=== PATIENT | male | born 1975 | race Caucasian/White ===

== ENCOUNTER 2019-04-04 02:28 | Inpatient (IN) | payer SELFPAY ==
[~2019-04-04] VITALS: Ht 172.7 cm; Wt 83.5 kg
--- NOTE | 2019-04-04 02:30 | NUR ---
TO ER BED 7 BIB EMS C/O WITNESSED TONIC CLONIC SEIZURE. PER EMS, LASTED APPROX 60 SECONDS. NOTED ORAL TRAUMA, (+) URINARY INCONTINENCE. PT ALTERED, RESTLESS. PER EMS PT WAS GIVEN VERSED 5MG IVP[address] PL[address] PT ON CARDIAC MONITORING, CONTINUOUS POX. ER MD AT BEDSIDE TO EVAL PT WITH ORDERS RECEIVED. WILL CARRY OUT ORDERS.
[2019-04-04] MEDS ORDERED: ONDANSETRON HCL/PF 4 MG/2 ML VIAL ONE (02:42)
[2019-04-04] MEDS ORDERED: LORAZEPAM INJ 2 MG/ML VIAL ONE (02:42)
--- NOTE | 2019-04-04 02:45 | NUR ---
I&O CATH DONE, URINE SAMPLE COLLECTED AND SENT TO LAB.
[2019-04-04] MEDS ORDERED: IV NS 0.9% 1,000 ML BAG IV ONE (03:00)
[2019-04-04] MEDS ORDERED: ONDANSETRON HCL/PF 4 MG/2 ML VIAL IVP ONE (03:00)
[2019-04-04] MEDS ORDERED: LORAZEPAM INJ 2 MG/ML VIAL IVP ONE (03:00)
--- NOTE | 2019-04-04 03:02 | NUR ---
PT FRIEND AT BEDSIDE.
[2019-04-04 03:04] LABS: BASOPHILS % (AUTO) 0.2 % (0.0-2.0); EOSINOPHILS % (AUTO) 0.2 % (0.0-6.0); HEMATOCRIT 35 % (39-51); HEMOGLOBIN 11.5 g/dL (13.5-17.5); LYMPHOCYTES # (AUTO) 1.2 /CMM (0.8-4.8); LYMPHOCYTES % (AUTO) 5.5 % (20.0-44.0); MEAN CORPUSCULAR HGB CONC 33 g/dl (31.0-36.0); MEAN CORPUSCULAR VOLUME 90 fL (80-96); MONOCYTES # (AUTO) 0.7 /CMM (0.1-1.30); MONOCYTES % (AUTO) 3.3 % (2.0-12.0); NEUTROPHILS # (AUTO) 20.5 /CMM (1.8-8.9); NEUTROPHILS % (AUTO) 90.8 % (43.0-81.0); PLATELET COUNT (AUTO) 635 /CMM (150-450); RED BLOOD CELL COUNT(AUTO) 3.88 MIL/uL (4.5-6.0); WHITE BLOOD COUNT (AUTO) 22.6 K/uL (4.3-11.0)
[2019-04-04 03:30] LABS: ALANINE AMINOTRANSFERASE 13 U/L (12-78); ALBUMIN 2.4 g/dL (3.4-5.0); ALCOHOL, BLOOD < 3 mg/dL (0-0); ALKALINE PHOSPHATASE 135 U/L (46-116); ASPARTATE AMINOTRANSFERASE 10 U/L (15-37); BILIRUBIN,TOTAL 0.2 mg/dL (0.2-1.0); CARBON DIOXIDE 18 mmol/L (21-32); CHLORIDE 95 mmol/L (98-107); CREATININE 1.5 mg/dL (0.6-1.3); POTASSIUM 4.2 mmol/L (3.5-5.1); SODIUM SERUM 133 mmol/L (136-145); TOTAL PROTEIN, SERUM 9.5 g/dL (6.4-8.2); UREA NITROGEN, BLOOD 13 mg/dL (7-18)
--- NOTE | 2019-04-04 03:32 | NUR ---
PT TRANSPORTED TO RADIOLOGY FOR CT.
[2019-04-04 03:34] LABS: GLUCOSE 482 mg/dL (74-106)
--- NOTE | 2019-04-04 03:48 | NUR ---
PT BACK FROM RADIOLOGY. PENDING CT RESULT.
[2019-04-04 04:00] LABS: BILIRUBIN,URINE NEGATIVE (NEGATIVE); BLOOD, URINE SMALL Ery/uL (NEGATIVE); COLOR,URINE YELLOW (YELLOW); KETONES,URINE NEGATIVE (NEGATIVE); LEUKOCYTE ESTERASE ,URINE NEGATIVE (NEGATIVE); NITRITE, URINE NEGATIVE (NEGATIVE); PH,URINE 5.5 (5.0-8.0); PROTEIN,URINE 30 mg/dl (NEGATIVE); UGLUCOSE >=1000 mg/dL (NEGATIVE); UROBILINOGEN,URINE 0.2 EU/dL (0.2)
[2019-04-04 04:03] LABS: ABG BASE EXCESS -0.9 mmol/L; ABG OXYGEN SATURATION 95.7 % (92.0-98.5); ABG PCO2 38.3 mmHg (35.0-45.0); ABG PH 7.407 (7.350-7.450); ABG PO2 85.6 mmHg (75.0-100.0); AaDO2 97.8 mmHg; COHb 0.7 % (0.5-1.5); MetHb 0.3 % (0.0-1.5); O2Hb 94.7 % (94.0-97.0); SITE, ABG Right Brachial; VENT MODE, BG N/C 3L
[2019-04-04 04:04] LABS: APPEARANCE,URINE CLEAR (CLEAR)
[2019-04-04 04:05] LABS: BACTERIA,URINE None seen /HPF (None Seen); SQUAMOUS EPITHELIAL CELL,UR Few /HPF (None Seen); WBC,URINE 0-2 /HPF (0-3)
--- NOTE | 2019-04-04 04:06 | NUR ---
PT RESTING QUIETLY, NO ACUTE DISTRESS NOTED, RESP EVEN AND UNLABORED. PT FRIENDS REMAINS AT BEDSIDE.
--- NOTE | 2019-04-04 04:57 | NUR ---
ER MD AT BEDSIDE TALKING TO RE-EVAL PT. PT FRIENDS REMAINS AT BEDSIDE.
[2019-04-04] MEDS ORDERED: LEVOFLOXACIN 750 MG /D5W 150ML PIGGYBACK IV ONE (05:00)
[2019-04-04] MEDS ORDERED: PIPERACILLIN /TAZOBACTAM 3.375 G in IV D5W 50 ML IV ONE (05:00)
[2019-04-04] MEDS ORDERED: PIPERACILLIN /TAZOBACTAM 3.375 G VIAL IV ONE (05:19)
[2019-04-04] MEDS ORDERED: LEVOFLOXACIN 750 MG /D5W 150ML 150 ML IV ONE (05:19)
--- NOTE | 2019-04-04 05:39 | NUR ---
ER SPOKE TO DANA PEARCE DNP REGARDING PT ADMISSION.
--- NOTE | 2019-04-04 05:52 | NUR ---
TELE 314-1
[2019-04-04] MEDS ORDERED: DEXTROSE 50%-WATER 50 ML DISP.SYRIN IV PRN (06:00)
[2019-04-04] MEDS ORDERED: LORAZEPAM INJ 2 MG/ML VIAL IV PRN (06:00)
[2019-04-04] MEDS ORDERED: Z GUARD REMEDY 2 OZ OINT TP PRN (06:00)
[2019-04-04] MEDS ORDERED: ONDANSETRON HCL/PF 4 MG/2 ML VIAL IVP PRN (06:00)
--- NOTE | 2019-04-04 06:04 | NUR ---
REPORT CALLED TO SUPERVISOR INVENTORY MERCHANDISINGGRISELDA MARTIN. WILL TRANSPORT PT VIA ACLS PROTOCOL.
--- NOTE | 2019-04-04 06:40 | NUR ---
REFRIGERATED COMPANY DRIVER NOTES RECEIVED PATIENT FROM ER SAFELY TRANSFERRED TO BED, ON 2 L VIA NC, RESPIRATIONS NOTED 22. NO RESPIRATORY DISTRESS PRESENT, UNABLE TO VERBALLY RESPOND TO QUESTIONS, ALTERED, PLACED ON DENTAL ASSISTING INSTRUCTOR ST AT 105, LEFT HAND #18G INTACT AND PATENT, ABX FROM ER LEVAQUIN RUNNING ORDERED, BELONGINGS LIST DONE, URRUTIA COUNTED WITH ANOTHER STAFF AND GIRLFRIEND MADE AWARE WILL PLACE IN VALUABLES IN SALES MANAGER OFFICE, PATIENT WAS CLEANSED AND REPOSITIONED, SAFETY AND SEIZURE PRECAUTIONS IN PLACE, LOW BED AND LOCKED, SIDE RAILS PADDED, BED ALARM IN PLACE, VOID X2, ALL NEEDS ATTENDED AT THIS TIME, WILL CONTINUE TO MONITOR AND ENDORSE TO NEXT SHIFT.
[2019-04-04 07:00] VITALS: BP 146/95
[2019-04-04] MEDS: ACETAMINOPHEN 650 MG/SUPP.RECT RC PRN ×3 (07:10→22:28)
--- NOTE | 2019-04-04 07:10 | NUR ---
NUT ROASTER HELPER NOTES TYLENOL SUPPOSITORY GIVEN NOTED FEVER OF 103.5. WILL ENDORSE TO NEXT SHIFT.
[2019-04-04 07:28] LABS: CALCIUM, SERUM 8.7 mg/dL (8.5-10.1); CARBON DIOXIDE 26 mmol/L (21-32); CHLORIDE 98 mmol/L (98-107); MAGNESIUM 1.9 mg/dL (1.8-2.4); POTASSIUM 3.8 mmol/L (3.5-5.1); SODIUM SERUM 134 mmol/L (136-145); UREA NITROGEN, BLOOD 11 mg/dL (7-18)
[2019-04-04 07:34] LABS: CHOLESTEROL 170 mg/dL (<200); HDL CHOLESTEROL 37 mg/dL (40-60); LDL 97 mg/dL (0-99); THYROID STIMULATING HORMONE 0.437 uIU/mL (0.358-3.74); TRIGLYCERIDES 257 mg/dL (30-150)
--- NOTE | 2019-04-04 07:43 | NUR ---
PUBLIC HEALTH TEACHER NOTES PATIENT RECEIVED RESTING INSIDE ROOM. ALTERED, UNABLE TO VERBALLY RESPOND TO STIMULI. NO ACUTE DISTRESS. ON TELE, FENCE ERECTOR IN PLACE ST 115. SEIZURE PRECAUTIONS IN PLACE, SIDE RAIL PADDING IN PLACE. GIRLFRIEND AT BEDSIDE. WILL CONTINUE TO MONITOR. BED LOCKED AND IN LOW POSITION. BILATERAL UPPER SIDE RAILS UP AND LOCKED. CALL LIGHT WITHIN EASY REACH
[2019-04-04 07:50] LABS: GLUCOSE 401 mg/dL (74-106)
[2019-04-04 08:00] VITALS: BP 140/90
--- NOTE | 2019-04-04 08:05 | NUR ---
PHYTOPATHOLOGY TEACHER NOTES GIRLFRIEND AT BEDSIDE ASKING FOR A COPY OF PROOF OF ADMISSION IN THE HOSPITAL. GIRLFRIEND VERBALIZED THAT PATIENT IS SUPPOSED TO HAVE A COURT HEARING TODAY AND THEY WILL ACKNOWLEDGE PATIENT NOT BEING PRESENT IF PROOF OF ADMISSION IN THE HOSPITAL IS PROVIDED. PLACED CALL TO SW AND LEFT MESSAGE.
[2019-04-04] MEDS ORDERED: PIPERACILLIN /TAZOBACTAM 3.375 G in IV D5W 50 ML IV SCH (09:00)
[2019-04-04] MEDS: IV NS 0.9% 1,000 ML IV PRN (09:21)
[2019-04-04] MEDS: PANTOPRAZOLE 40 MG VIAL IV SCH (09:21)
[2019-04-04] MEDS: LEVETIRACETAM (500MG) 500 MG in IV NS 0.9% 100 ML IV SCH ×2 (09:21→21:53)
[2019-04-04] MEDS: PIPERACILLIN /TAZOBACTAM 3.375 G in IV D5W 100 ML IV SCH ×2 (10:03→17:57)
[2019-04-04] MEDS: INSULIN REGULAR, HUMAN 100 UNIT/ML 3 ML VIAL SQ PRN ×4 (10:04→22:44)
[2019-04-04] MEDS: BLOOD SUGAR DIAGNOSTIC 1 EACH STRIP IN SCH ×4 (10:04→22:43)
--- NOTE | 2019-04-04 10:52 | NUR ---
MS RN NOTES PLACED CALL AND LEFT MESSAGE TO DR HOWE REGARDING NEURO CONSULT. WILL CONTINUE TO MONITOR
--- NOTE | 2019-04-04 10:59 | NUR ---
MS RN NOTES RECEIVED RESPONSE FROM DR HOWE, MADE AWARE OF PATIENT CONDITION. DR HARRINGTON MADE AWARE. WILL CONTINUE TO MONITOR
--- NOTE | 2019-04-04 14:35 | NUR ---
Vp Medical Consult requested by Dr. Neto Akhtar for Cocaine use. Upon Golf Technician consultation, the pt. presents laying on his bed sleeping and not easily rousable. Per Charge Nurse, pt. is still experiencing altered mental status. Pt. is unable to be assessed at this time. SW to follow up. The pt.s girlfriend, Dayanna Unk [phone] is at bedside. Per pt.s girlfriend, Bobby request, provided Elizabeth with patients Proof of Admission. Zakia expressed gratitude.
[2019-04-04 16:00] VITALS: BP 146/75
--- NOTE | 2019-04-04 16:01 | NUR ---
MS RN NOTES RECTAL TEMP TAKEN WITH RESULT OF 104.2 F. PATIENT REMAINS ALTERED. AROUSABLE TO PAIN. TYLENOL SUPPOSITORY ADMINISTERED ORDERED. COOLING MEASURES PROVIDED, BED BATH GIVEN TO PATIENT. DR HOWE PRESENT AT UNIT AND AWARE. VERBALIZED THAT HE WILL SPEAK WITH DR HARRINGTON WHO IS ALSO PRESENT AT UNIT. WILL CONTINUE TO MONITOR.
--- NOTE | 2019-04-04 16:10 | NUR ---
MS RN NOTES WITH NEW ORDER FROM DR HARRINGTON FOR STAT KUMBAR PUNCTURE. UNABLE TO OBTAIN INFORMED CONSENT FROM PATIENT DUE TO MENTAL STATUS, NO OTHER AVAILABLE FAMILY MEMBER AVAILABLE PER CHART AND PER GIRLFRIEND AT BEDSIDE. CONSENT SIGNED BY 2 MDs, DR HARRINGTON AND DR HOWE. RADIOLOGY AWARE.
--- NOTE | 2019-04-04 16:12 | NUR ---
MS RN NOTES RETAKEN TEMP WITH RESULT OF 101.3 F. CONTINUE WITH PROVIDING COOLING MEASURES. WILL CONTINUE TO MONITOR
--- NOTE | 2019-04-04 16:18 | NUR ---
MS RN NOTES PATIENT WHEELED BY Favim FOR LUMBAR PUNCTURE. LEFT BY HOSPITAL BED
[2019-04-04 18:02] LABS: CSF GLUCOSE 59 mg/dL (40-70)
--- NOTE | 2019-04-04 19:05 | NUR ---
MS RN NOTES RECEIVED PT IN BED WITH FAMILY AT BEDSIDE. PT ALTERED AND UNABLE TO VERBALLY RESPOND TO STIMULI. NO ACUTE DISTRESS NOTED AT THIS TIME. PT ON SEIZURE PRECAUTIONS, WITH SIDE RAIL PADDING IN PLACE. NO S/S OF PAIN AT THIS TIME. PT NOTED WITH FABIO KELLER #18G PATENT AND INTACT INFUSING NS @75CC/HR. BED IN LOWEST LOCKED POSITION. CALL LIGHT WITHIN REACH. WILL CONTINUE TO MONITOR.
[2019-04-04 19:08] LABS: CSF PROTEIN 424.4 mg/dL (15-45)
[2019-04-04 20:00] VITALS: BP 134/86
--- NOTE | 2019-04-04 20:15 | NUR ---
MS RN NOTES PT NOTED WITH ELEVATED TEMP, COOLING MEASURES STARTED INCLUDING ICE BACK. MD MADE AWARE WELL CHARGE NURSE. WILL CONTINUE TO MONITOR.
[2019-04-04] MEDS: CEFTRIAXONE 2 G in IV D5W 100 ML IV SCH (20:29)
[2019-04-04] MEDS ORDERED: VANCOMYCIN HCL 1.25 GM in IV D5W 260 ML IV ONE (21:30)
[2019-04-04] MEDS ORDERED: VANCOMYCIN 1 GM in IV NS 0.9% 250 ML IV ONE (22:00)
[2019-04-04] MEDS ORDERED: VANCOMYCIN 1.5 GM in IV NS 0.9% 500 ML IV ONE (22:00)
[2019-04-04] MEDS ORDERED: DEXAMETHASONE SOD PHOSPHATE 10 MG/ML VIAL ONE (22:20)
[2019-04-04] MEDS ORDERED: VANCOMYCIN 1 GM VIAL ONE (22:21)
[2019-04-04] MEDS ORDERED: VANCOMYCIN 500 MG VIAL ONE (22:22)
--- NOTE | 2019-04-04 22:28 | NUR ---
MS RN NOTES PT NOTED WITH ELEVATED TEMP, TYLENOL SUP GIVEN, AND COOLING MEASURES. WILL CONTINUE TO MONITOR.
[2019-04-04] MEDS ORDERED: VANCOMYCIN 500 MG in IV NS 0.9% 100 ML IV ONE (23:00)
[2019-04-05] VITALS (57 sets, daily range): BP systolic 76–153; BP diastolic 37–92
[2019-04-05] MEDS: DEXAMETHASONE SOD PHOSPHATE 10 MG/ML VIAL IV SCH ×5 (00:09→23:20)
[2019-04-05] MEDS: METRONIDAZOLE 500MG/ NS 100ML 500 MG in PREMIX 1 EA IV SCH ×2 (01:10→05:05)
[2019-04-05] MEDS ORDERED: LEVOFLOXACIN 750 MG /D5W 150ML 750 MG in PREMIX 1 EA IV SCH (06:00)
[2019-04-05 06:23] LABS: BASOPHILS % (AUTO) 0.1 % (0.0-2.0); HEMATOCRIT 35 % (39-51); HEMOGLOBIN 11.6 g/dL (13.5-17.5); LYMPHOCYTES # (AUTO) 0.6 /CMM (0.8-4.8); LYMPHOCYTES % (AUTO) 2.4 % (20.0-44.0); MEAN CORPUSCULAR HGB CONC 33 g/dl (31.0-36.0); MEAN CORPUSCULAR VOLUME 89 fL (80-96); MONOCYTES # (AUTO) 0.8 /CMM (0.1-1.30); MONOCYTES % (AUTO) 3.3 % (2.0-12.0); NEUTROPHILS # (AUTO) 23.1 /CMM (1.8-8.9); NEUTROPHILS % (AUTO) 94.2 % (43.0-81.0); PLATELET COUNT (AUTO) 450 /CMM (150-450); RED BLOOD CELL COUNT(AUTO) 3.95 MIL/uL (4.5-6.0); WHITE BLOOD COUNT (AUTO) 24.5 K/uL (4.3-11.0)
[2019-04-05] MEDS: INSULIN REGULAR, HUMAN 100 UNIT/ML 3 ML VIAL SQ PRN ×3 (06:29→21:51)
[2019-04-05] MEDS: BLOOD SUGAR DIAGNOSTIC 1 EACH STRIP IN SCH ×4 (06:39→21:49)
[2019-04-05] MEDS: ACETAMINOPHEN 650 MG/SUPP.RECT RC PRN (06:44)
[2019-04-05 06:55] LABS: THYROID STIMULATING HORMONE 0.644 uIU/mL (0.358-3.74)
[2019-04-05] MEDS: CEFTRIAXONE 2 G in IV D5W 100 ML IV SCH ×2 (07:22→17:53)
--- NOTE | 2019-04-05 07:45 | NUR ---
MS RN NOTES PT IN BED ASLEEP. PT ALTERED AND UNABLE TO VERBALLY RESPOND TO STIMULI. NO ACUTE DISTRESS NOTED AT THIS TIME. PT ON SEIZURE PRECAUTIONS, WITH SIDE RAIL PADDING IN PLACE. PT NOTED WITH ELEVATED TEMP THROUGHOUT SHIFT. PT GIVEN COOLING MEASURES WELL TYLENOL. CHARGE NURSE MADE AWARE WELL MD. PT KEPT CLEAN, DRY, AND COMFORTABLE. PT TURNED Q2 HOURS THROUGHOUT SHIFT. NO S/S OF PAIN AT THIS TIME. PT NOTED WITH FABIO KELLER #18G PATENT AND INTACT INFUSING NS @75CC/HR. BED IN LOWEST LOCKED POSITION. CALL LIGHT WITHIN REACH. WILL ENDORSE TO ONCOMING NURSE FOR CHARLEEN.
[2019-04-05] MEDS: PANTOPRAZOLE 40 MG VIAL IV SCH (07:49)
[2019-04-05 07:59] LABS: CALCIUM, SERUM 8.8 mg/dL (8.5-10.1); CREATININE 0.9 mg/dL (0.6-1.3); MAGNESIUM 2.3 mg/dL (1.8-2.4); PHOSPHORUS 2.3 mg/dL (2.5-4.9); POTASSIUM 3.9 mmol/L (3.5-5.1)
[2019-04-05] MEDS ORDERED: ACYCLOVIR IV 1 GM in IV D5W 250 ML IV SCH (08:00)
--- NOTE | 2019-04-05 08:00 | NUR ---
MS RN NOTES RECEIVED PATIENT IN THE BED TELE ST-116, V/S TAKEN PATIENT T-100.3, GIVEN COOLING MEASURES (ICE PACK AND COOL WATER BATH), PATIENT HAS LOOSE BOWEL MOVEMENT. VITAL SIGNS - BP: 119/76 HR: 116 RR: 26 TEMP:100.3 SPO2: 99 ON ROOM 2L NC. PATIENT BREATHING THROUGH MOUTH. BREATHING UNLABORED. DAILY ORAL HYGIENE IMPLEMENTED. FOUR SIDE RAILS UP AND PADDED FOR SEIZURE PRECAUTION. BED SET IN TREJO'S POSITION TO DECREASE RISK OF ASPIRATION. SKIN DRY AND INTACT. PATIENT ABLE TO RESPOND WHEN TOUCHED, MAKES GRUNTING NOISE WHEN MOVING THE PATIENT AND OPENS EYES BUT NOT ABLE TO FOLLOW COMMANDS. ROCEPHIN AND LEVAQUIN ANTIBIOTICS RUNNING ON IV ON LEFT FOREARM. PATIENT WEARING DIAPER, UNABLE TO COLLECT URINE AT THIS TIME. HOSPITALIST GITA MADE ORDERS FOR PATIENT TO BE TRANSFERRED TO THE ICU. CURRENTLY WAITING FOR A BED AVAILABILITY.
[2019-04-05] MEDS ORDERED: VANCOMYCIN 1 GM in IV D5W 250 ML IV SCH (08:30)
[2019-04-05] MEDS: VANCOMYCIN 1.25 GM in IV D5W 250 ML IV SCH ×2 (09:11→16:27)
[2019-04-05] MEDS: LEVETIRACETAM (500MG) 500 MG in IV NS 0.9% 100 ML IV SCH ×2 (09:11→20:50)
--- NOTE | 2019-04-05 09:30 | NUR ---
SALES AND MERCHANDISING ASSOCIATE NOTE RECEIVED REPORT FROM NURSE PATEL FROM [facility].
--- NOTE | 2019-04-05 09:45 | NUR ---
MS RN NOTES PATIENT TRANSFERRED TO ICU ROOM 253, ASSIST WITH THREE NURSES. APPLIED MASK ON PATIENT FOR DROPLET SAFETY PRECAUTION. PATIENT ON 2L NC. TELEMONITOR ON, HR STABLE. CURRENT TEMPERATURE IS 100.9. ICE PACKS PLACED ON PATIENT'S AXILLARY AND GROIN AREA. NO ACUTE RESPIRATORY DISTRESS NOTED. REPORT GIVEN TO INSTALLMENT AGENTTATUM. INSTALLMENT AGENT VERBALIZED UNDERSTANDING OF PLAN OF CARE. WILL FOLLOW UP WITH ICU.
[2019-04-05] MEDS ORDERED: FEE PK DOSING 1 MIN EA MC ONE (10:03)
--- NOTE | 2019-04-05 10:15 | NUR ---
CERAMIC MAKER DEMONSTRATOR NOTE RECEIVED PATIENT FROM [facility] VIA BED@[phone].ON ISOLATION PRECAUTIONS FOR MENINGITIS.PATIENT IN BED.RESPONDING ONLY TO PAINFUL STIMULI.L SIDE NOT MOVING .REFLEXES PRESENT ON L SIDE.CLINICAL SUPERVISOR ANDER MADE AWARE.CT HEAD DONE ON 04/04.NO ACUTE INTRACRANIAL ABNORMALITY.IV ON L HAND # 18 .INTACT AND PATENT.NO BELONGINGS EXCEPT BRACELET.ON O2 2L VIA NASAL CANULA.SATURATING 92-96%.SHALLOW BREATHING.SEEN BY .GOT ORDER FOR INTUBATION.CALL MADE TO ER DOCTOR.WILL CONTINUE TO MONITOR.
[2019-04-05] MEDS ORDERED: PROPOFOL 100 ML ONE (10:21)
[2019-04-05] MEDS ORDERED: PROPOFOL 200 MG/20 ML VIAL IV ONE (10:25)
[2019-04-05] MEDS ORDERED: MIDAZOLAM HCL 2 MG/2ML VIAL ONE (10:31)
--- NOTE | 2019-04-05 10:35 | NUR ---
RT PATIENT REC'D TRANSFER FROM [facility]. PATIENT WAS NON RESPONSIVE TO VERBAL COMMANDS. PER DR STOKES PATIENT REQUIRED ORAL INTUBATION TO PROTECT AIRWAY. ER DOCTOR SANDRA ARRIVED AND INTUBATED PATIENT WITH A 7.5 ETT SECURED AT 26CM AT THE LIP. POSITIVE CO2 DETECTOR COLOR CHANGE NOTED, BILAT BREATH SOUNDS WERE HEARD. NOTED CHEST RISE ON INFLATION. XRAY CONFIRMED PROPER ETT PLACEMENT. PATIENT PLACED ON VENT WITH ORDERED SETTINGS PRASANNA WELL. EVENT ALARMS CHECKED + AUDIBLE. CUFF PRESSURE CHECKED COMMERCIAL CREDIT HEAD. AMBU BAG AT HOB. CONT CURRENT PLAN OF CARE Addendum: 04/05/19 at 1412 by THOMAS GUEVARA RT Amended: Links added.
[2019-04-05] MEDS ORDERED: MIDAZOLAM HCL 2 MG/2ML VIAL IV ONE (10:45)
--- NOTE | 2019-04-05 10:45 | NUR ---
BOAT RENTAL CLERK NOTE PATIENT GOT INTUBATED BY FROM ER.7.09/26@[facility] LEVEL @1035.STARTED ON PROPOFOL DRIP.WILL CONTINUE TO MONITOR.
[2019-04-05] MEDS ORDERED: Sodium Phosphate 15 MMOL in IV D5W 250 ML IV ONE (11:00)
[2019-04-05] MEDS ORDERED: LORAZEPAM INJ 2 MG/ML VIAL IV PRN (11:30)
[2019-04-05] MEDS ORDERED: MORPHINE SULFATE INJ 4 MG/ML DISP.SYRIN IV PRN (11:30)
[2019-04-05] MEDS ORDERED: NOREPINEPHRINE 16 MG in IV D5W 500 ML IV PRN (11:30)
[2019-04-05] MEDS ORDERED: PROPOFOL 100 ML IV PRN (11:30)
--- NOTE | 2019-04-05 11:30 | NUR ---
CONCRETE BUILDING ASSEMBLER NOTE CAR INSPECTION AND REPAIR MANAGER DMTRY MADE AWARE THAT PATIENT BP TRENDING DOWN.GOT ORDER FOR LEVOPHED.OK TO INSERT PICCLINE.WILL CONTINUE TO MONITOR.
[2019-04-05] MEDS ORDERED: NEUTRA PHOS 1 POWD.PACKET PO ONE (12:00)
[2019-04-05] MEDS ORDERED: AMPICILLIN SODIUM 2 GM in IV NS 0.9% 100 ML IV SCH (12:00)
[2019-04-05 12:10] LABS: ABG BASE EXCESS 1.9 mmol/L; ABG OXYGEN SATURATION 98.8 % (92.0-98.5); ABG PCO2 30.6 mmHg (35.0-45.0); ABG PH 7.518 (7.350-7.450); ABG PO2 208.1 mmHg (75.0-100.0); COHb 0.5 % (0.5-1.5); MetHb 0.5 % (0.0-1.5); O2Hb 97.8 % (94.0-97.0); SITE, ABG Left Brachial; VENT MODE, BG AC 14 500 60% +5
[2019-04-05] MEDS: PROPOFOL 100 ML IV PRN ×4 (12:19→20:48)
[2019-04-05] MEDS: PIPERACILLIN /TAZOBACTAM 4.5 G in IV D5W 50 ML IV SCH ×3 (13:07→23:20)
--- NOTE | 2019-04-05 14:30 | NUR ---
GRAIN SPOUTER NOTE PATIENT DONT HAVE LEGAL RESPONSIBLE GREEN PARTY FOR SIGN CONSENT.ALICIA LORENZO MADE AWARE.FIANCEE BEDSIDE.SHE SAID SHE WILL CALL BROTHER.BUT BROTHER DONT HAVE GOOD RELATION WITH PATIENT. AND ALICIA LORENZO SIGN FOR CONSENT.
--- NOTE | 2019-04-05 15:00 | NUR ---
FABRIC CUTTER NOTE PATIENT LAY CHAN ASKING FOR MONEY PATIENT HAD WHILE HE GOT ADMITTED.REPAIRER WOOD FURNITURE MARIBELL MADE AWARE.UNABLE TO RELEASE MONEY WITH OUT PATIENT'S PERMISSION.SHE MADE AWARE.DUSTIN GOT UPSET.EXPLAINED HOSPITAL POLICY .
[2019-04-05] MEDS: ACETAMINOPHEN 650 MG/20.3 ML UDC NG PRN (15:43)
[2019-04-05] MEDS: IV NS 0.9% 1,000 ML IV PRN (18:15)
--- NOTE | 2019-04-05 19:38 | NUR ---
WIRE CUTTER CLOSING NOTE PATIENT IN BED INTUBATED.ETT 7.5,26@LIP LEVEL.TOLERATING SETTINGS WELL.ON LEVO ,DIPRIVAN .JAYME PICC LINE.ALL IV LINES ARE INTACT AND PATENT.SAFETY AND ASPIRATION PRECAUTIONS IN PLACE.SEEN BY PATIENT SISTER.ADDED ON CONTACT LIST RESPONSIBLE GREEN PARTY SISTER AND BROTHER.DUSTIN MADE AWARE TO GO TO [facility] TO SEE NURSE TO VERIFY PATIENT BELONGINGS.SPOKE TO NURSE VIOLETTA MADE AWARE PATIENT BELONGINGS MISSING.SHE IS WAITING FAMILY TO VERIFY PATIENT BELONGINGS.ENDORSED TO PM NURSE FOR CHARLEEN.
--- NOTE | 2019-04-05 19:45 | NUR ---
RN NOTES PATIENT ORALLY INTUBATED ON ETT 7.5 AND 26CM @ LIP LINE. WITH VENT SETTING AC 14 TV 500 FIO2 40% PEEP5 TOLERATED WELL SATURATION 100%. PATIENT IS SEDATED WITH DIPRIVAN . WITH NGT CLAMPED ONLY FOR MEDS, IV ON JAYME PICC LINE WITH LEVO @ 10 AND PROPOFOL @ 60 MCG/KG/MIN TITRATED PROTOCOL ORDER, AND IVF NS @ 75 ML/HR. IV LINE ON LH, LFA ARE ALL INTACT AND PATENT. BLISS CATH DRAINED WITH SEDIMENTED YELLOW COLOR URINE. COOLING BLANKET KEPT IN PLACED RECEIVED TEMP 101.5 DEGREE FHARENHEIGHT. KEPT PT CLEAN AND DRY. TURNED AND REPOSITIONED Q2H AND PRN FOR COMFORT.
--- NOTE | 2019-04-05 22:00 | NUR ---
RN NOTES INFORMED ALICIA NEUROUROLOGIST THAT PATIENT BS 496 MG/DL AND 20 UNITS OF REGULAR INSULIN GIVEN ORDERED, PER ELEMENTARY SCIENCE TEACHER TO RECHECKED BS IN 1 HOUR. NOTED
--- NOTE | 2019-04-05 23:07 | NUR ---
RN NOTES INFORMED ALICIA CRIME SCENE EVIDENCE TECHNICIAN THAT PATIENT BS RECHECKED IS 430 MG/DL PER CRIME SCENE EVIDENCE TECHNICIAN TO GIVE ANOTHER 20 UNITS OF REGULAR INSULIN AND RECHECKED IN 1HR. NOTED AND CARRIED OUT ORDER.
[2019-04-05] MEDS ORDERED: INSULIN REGULAR, HUMAN 100 UNIT/ML 3 ML VIAL SQ ONE (23:30)
[2019-04-06] VITALS (92 sets, daily range): BP systolic 100–134; BP diastolic 58–92
[2019-04-06] MEDS: PROPOFOL 100 ML IV PRN ×6 (01:16→23:00)
[2019-04-06] MEDS ORDERED: NOREPINEPHRINE 16 MG in IV D5W 500 ML IV PRN (01:30)
[2019-04-06] MEDS ORDERED: INSULIN REGULAR, HUMAN 100 UNIT/ML 3 ML VIAL SQ ONE (01:30)
[2019-04-06] MEDS: VANCOMYCIN 1.25 GM in IV D5W 250 ML IV SCH ×2 (01:36→08:02)
--- NOTE | 2019-04-06 01:37 | NUR ---
RN NOTES BS RECHECKED FOR THE 3RD TIME AND BS IS 430 MG/DL STILL. INFORMED ALICIA INJECTION PRESS OPERATOR, WITH NEW ORDER TO GIVE ANOTHER 20 UNITS OF INSULIN SQ. AND TO RECHECKED AFTER AN HOUR.
[2019-04-06] MEDS: ACETAMINOPHEN 650 MG/20.3 ML UDC NG PRN (01:46)
[2019-04-06] MEDS ORDERED: NOREPINEPHRINE 4 MG/4 ML AMPUL IV ONE (03:37)
[2019-04-06] MEDS: NOREPINEPHRINE 16 MG in IV NS 0.9% 500 ML IV PRN (04:00)
--- NOTE | 2019-04-06 04:00 | NUR ---
RN NOTES BED BATH DONE TOLERATED WELL, WITH LARGE BMX1 BLACK MUCOID COLOR OUTPUT SENT SAMPLE TO LAB FOR OB STOOL. ORDERED BY DR. NEAL. KEPT PT CLEAN AND DRY.
[2019-04-06 04:26] LABS: BASOPHILS # (AUTO) 0.1 /CMM (0.0-0.2); BASOPHILS % (AUTO) 0.3 % (0.0-2.0); HEMATOCRIT 28 % (39-51); HEMOGLOBIN 9.6 g/dL (13.5-17.5); LYMPHOCYTES # (AUTO) 0.6 /CMM (0.8-4.8); LYMPHOCYTES % (AUTO) 2.6 % (20.0-44.0); MEAN CORPUSCULAR HGB CONC 34 g/dl (31.0-36.0); MEAN CORPUSCULAR VOLUME 89 fL (80-96); MONOCYTES # (AUTO) 0.6 /CMM (0.1-1.30); MONOCYTES % (AUTO) 2.8 % (2.0-12.0); NEUTROPHILS # (AUTO) 21.3 /CMM (1.8-8.9); NEUTROPHILS % (AUTO) 94.3 % (43.0-81.0); PLATELET COUNT (AUTO) 468 /CMM (150-450); RED BLOOD CELL COUNT(AUTO) 3.19 MIL/uL (4.5-6.0); WHITE BLOOD COUNT (AUTO) 22.6 K/uL (4.3-11.0)
[2019-04-06 04:39] LABS: CALCIUM, SERUM 7.9 mg/dL (8.5-10.1); CREATININE 1.6 mg/dL (0.6-1.3); PHOSPHORUS 3.6 mg/dL (2.5-4.9); POTASSIUM 3.3 mmol/L (3.5-5.1)
[2019-04-06 05:15] LABS: OCCULT BLOOD STOOL NEGATIVE (NEGATIVE)
[2019-04-06] MEDS: PIPERACILLIN /TAZOBACTAM 4.5 G in IV D5W 50 ML IV SCH ×3 (05:51→17:35)
[2019-04-06] MEDS: DEXAMETHASONE SOD PHOSPHATE 10 MG/ML VIAL IV SCH ×3 (05:51→17:52)
[2019-04-06] MEDS: CEFTRIAXONE 2 G in IV D5W 100 ML IV SCH ×2 (05:51→17:54)
--- NOTE | 2019-04-06 07:13 | NUR ---
RN NOTES NO SIGNIFICANT CHARLEEN THROUGHOUT THE SHIFT. ALL DUE MEDICINE ADMINISTERED ORDERED. ETT AND VENT SETTING TOLERATED WELL. AFEBRILE AT THIS TIME LAST TEMPERATURE WAS 98.8 DEGREE FHARENHEIGHT, COOLING BLANKET OFF. LEVOPHED @ 6 MCG/MIN AND DIPRIVAN @ 45 MCG/KG/MIN, PATIENT REMAINED SEDATED. VSS WITH PRESSORS. ISOLATION PRECAUTION FOR DROPLET KEPT MET. BS CLOSELY MONITOR. LAST BLD. SUGAR WAS 439 MG/DL PER ALICIA MCNEILL AT THIS TIME SINCE PATIENT HAD DECADRON. KEPT PT CLEAN AND DRY. ENDORSED CONTINUITY OF CARE TO AM NURSE.
[2019-04-06] MEDS: INSULIN REGULAR, HUMAN 100 UNIT/ML 3 ML VIAL SQ PRN ×4 (07:44→22:03)
[2019-04-06] MEDS: BLOOD SUGAR DIAGNOSTIC 1 EACH STRIP IN SCH ×4 (07:48→21:58)
[2019-04-06 08:07] LABS: HIV SCRN 4G wRFX Non Reactive (Non Reactive)
[2019-04-06] MEDS: PANTOPRAZOLE 40 MG VIAL IV SCH (08:43)
[2019-04-06] MEDS: LEVETIRACETAM (500MG) 500 MG in IV NS 0.9% 100 ML IV SCH (09:11)
[2019-04-06] MEDS ORDERED: POTASSIUM CL. PREMIX PERIPHER. 50 ML IV SCH (10:30)
[2019-04-06] MEDS ORDERED: MORPHINE SULFATE INJ 4 MG/ML DISP.SYRIN IV PRN (10:39)
[2019-04-06] MEDS: IV NS 0.9% 1,000 ML IV PRN (10:55)
--- NOTE | 2019-04-06 11:23 | NUR ---
RN NOTES 0730-RECEIVED PATIENT FROM RN. APTIENT ORALLY INTUBATED, NO SIGN OF PAIN. ON PROPOFOL DRIP, LEVOPHED DRIP. MONITOR STATUS 1000-SEEN BBY DR DIVYA RAYMOND MD WITH ORDER FOR VENT CHANGES. SEDATION VACATION STARTED, MONITOR STATUS 1115-SEEN BY DR MUNOZ, PATIENT OPENS EYES, FOLLOWS SIMPLE COMMANDS, NOTED LEFT SIDE WEAKNESS, DR MUNOZ AWARE.PATIENT HAD SEIZURE ACTIVITY ABOUT 5-[address] MUNOZ NOTIFIED. PATIENT RETARTED ON PROPOFOL PER DR MUNOZ'S INSTRUCTIONS
[2019-04-06] MEDS: ACETAMINOPHEN 650 MG/SUPP.RECT RC PRN (12:32)
[2019-04-06] MEDS ORDERED: LEVETIRACETAM (500MG) 500 MG in IV NS 0.9% 100 ML IV STA (14:50)
--- NOTE | 2019-04-06 14:53 | NUR ---
RN NOTES PATIENT SEEN BY DR HOWE, REPORT GIVEN ABOUT PATIENT MOTOR STATUS ON THE LEFT SIDE, HE SAID HE IS AWARE OF IT WHEN PATIENT HAD HIS CT DONE THE DAY BEFORE.
[2019-04-06] MEDS ORDERED: LEVETIRACETAM SOL (5 ML) 100 MG/ML UDC NG ONE (15:02)
[2019-04-06] MEDS: VANCOMYCIN 1 GM in IV D5W 250 ML IV SCH (16:47)
--- NOTE | 2019-04-06 19:00 | NUR ---
RECEIVED PATIENT ORALLY INTUBATED TO THE VENT ON AC MODE,SEDATED ON PROPOFOL DRIP @ 45 MCG/KG.MIN, + COUGH,+ GAG. ON LEVOPHED DRIP FOR BP SUPPORT. ON DROPLET ISOLATION R/O MENINGITIS.WILL CLOSELY MONITOR FOR ANY SEIZURE EPISODE,SEIZURE AND ASPIRATION PRECAUTION IMPLEMENTED. COMFORT CARE DONE.
--- NOTE | 2019-04-06 19:16 | NUR ---
RN NOTES 1699-CT HEAD DONE, DR HOWE NOTIFIED OF THE RESULTS.PATIENT REMAINS ON PROPOFOL DRIP, NOTED TO GRIMACE TO PAIN AT TIMES. LEVOPHED ONGOING, LOSER RATE. AFEBRILE. 1899-PATIENT VISITED BY"[id number]" FROM [place], ENCOURAGED VISITOR TO GET IN TOUCH WITH PATIENT BROTHER, MITCHELL. SPOKE TO MITCHELL AND INFORMED THAT "NATANAEL" CLAIMING TO BE BROTHER CALLED GLORIA COLLADO, HE SAID "MIGHT BE A FRIEND SINCE PATIENT IS FRIENDLY, ASKED MITCHELL IF INFO CAN BE GIVEN TO VISITORS OR CALLERS , INFORMED MITCHELL TO ALSO INFORM THEIR SISTER. REPORT GIVEN TO RN FOR FURTHER CARE
--- NOTE | 2019-04-06 19:43 | NUR ---
RECEIVED PT ORALLY INTUBATED WITH 7.5 ETT SECURED VIA ANCHOR FAST AT 26CM AT THE LIP. NO RESP DISTRESS. PT TOLERATING VENT SETTINGS. PT IS SEDATED. VENT ALARMS SET AND AUDIBLE. AMBU BAG AT BEDSIDE. WILL CONTINUE TO MONITOR T/O SHIFT
[2019-04-06] MEDS ORDERED: LEVETIRACETAM (500MG) 1,000 MG in IV NS 0.9% 100 ML IV SCH (21:00)
[2019-04-06] MEDS: LEVETIRACETAM SOL (5 ML) 100 MG/ML UDC NG SCH (21:47)
--- NOTE | 2019-04-06 22:00 | NUR ---
STATUS UNCHANGED,SEDATED.AWAKENS EASILY WHEN PROPOFOL WAS PAUSE (WHEN VOLUME WAS EMPTY,)NOTED MOVEMENT OF RIGHT ARM AND LEGS.
[2019-04-07] VITALS (60 sets, daily range): BP systolic 90–130; BP diastolic 52–96
--- NOTE | 2019-04-07 | NUR ---
REMAINS STABLE,WEAN DOWN LEVOPHED DRIP TOLERATED. REMAINS AFEBRILE.STILL ON PROPOFOL DRIP + COUGH AND GAG.
[2019-04-07] MEDS: PIPERACILLIN /TAZOBACTAM 4.5 G in IV D5W 50 ML IV SCH ×4 (00:01→17:12)
[2019-04-07] MEDS: VANCOMYCIN 1 GM in IV D5W 250 ML IV SCH ×3 (01:00→16:54)
[2019-04-07] MEDS: IV NS 0.9% 1,000 ML IV PRN ×2 (02:45→16:54)
[2019-04-07] MEDS: PROPOFOL 100 ML IV PRN ×4 (03:47→22:45)
--- NOTE | 2019-04-07 04:00 | NUR ---
STATUS UNCHANGED, STILL ON PROPOFOL DRIP,STILL NO MOVEMENT NOTED ON LEFT SIDE. ON LOW DOSE LEVOPHED, BP STABLE. 0500 AM BATH DONE,
[2019-04-07] MEDS: NOREPINEPHRINE 16 MG in IV NS 0.9% 500 ML IV PRN (04:57)
[2019-04-07 05:00] LABS: BASOPHILS # (AUTO) 0.3 /CMM (0.0-0.2); BASOPHILS % (AUTO) 1.2 % (0.0-2.0); HEMATOCRIT 29 % (39-51); HEMOGLOBIN 9.7 g/dL (13.5-17.5); LYMPHOCYTES % (AUTO) 4.3 % (20.0-44.0); MEAN CORPUSCULAR HGB CONC 34 g/dl (31.0-36.0); MEAN CORPUSCULAR VOLUME 89 fL (80-96); MONOCYTES # (AUTO) 1.1 /CMM (0.1-1.30); NEUTROPHILS # (AUTO) 19.7 /CMM (1.8-8.9); NEUTROPHILS % (AUTO) 89.5 % (43.0-81.0); PLATELET COUNT (AUTO) 451 /CMM (150-450); RED BLOOD CELL COUNT(AUTO) 3.24 MIL/uL (4.5-6.0); WHITE BLOOD COUNT (AUTO) 22.1 K/uL (4.3-11.0)
[2019-04-07 05:07] LABS: BILIRUBIN,TOTAL 0.1 mg/dL (0.2-1.0); CREATININE 1.1 mg/dL (0.6-1.3); MAGNESIUM 2.3 mg/dL (1.8-2.4); PHOSPHORUS 3.3 mg/dL (2.5-4.9); POTASSIUM 3.6 mmol/L (3.5-5.1); TOTAL PROTEIN, SERUM 7.3 g/dL (6.4-8.2)
[2019-04-07 05:35] LABS: ALBUMIN 1.4 g/dL (3.4-5.0)
[2019-04-07] MEDS: CEFTRIAXONE 2 G in IV D5W 100 ML IV SCH ×2 (06:01→18:07)
--- NOTE | 2019-04-07 07:00 | NUR ---
REPORT GIVEN TO TATUM VILLALOBOS.
--- NOTE | 2019-04-07 07:35 | NUR ---
KINESIOLOGIST OPENING NOTES RECEIVED REPORT FROM PM NURSE.PATIENT ORALLY INTUBATED ON ETT 7.5 AND 26CM @ LIP LINE. ON VENT TOLERATING SETTINGS ORDERED.SATURATING 100%. PATIENT IS SEDATED WITH DIPRIVAN . WITH NGT CLAMPED . IV ON JAYME PICC LINE WITH PROPOFOL @ 45 MCG/KG/MIN AND IVF NS @ 75 ML/HR. IV LINE ON LH, LFA ARE ALL INTACT AND PATENT. BLISS CATH DRAINED WITH DARK YELLOW COLOR URINE. BED IS LOW AND IN LOCKED POSITION.BILATERAL SOFT RESTRAINTS ON .SAFETY,VISUAL CHECK DONE.ON CONTACT ISOLATION FOR DROPLET PRECAUTIONS.SRX3.BED ALARM ON .HOB ELEVATED.WILL CONTINUE TO MONITOR.
[2019-04-07 08:01] LABS: ABG BASE EXCESS 0.4 mmol/L; ABG OXYGEN SATURATION 97.7 % (92.0-98.5); ABG PCO2 32.6 mmHg (35.0-45.0); ABG PH 7.477 (7.350-7.450); ABG PO2 120.6 mmHg (75.0-100.0); AaDO2 127.1 mmHg; COHb 0.3 % (0.5-1.5); MetHb 0.4 % (0.0-1.5); SITE, ABG Right Radial; VENT MODE, BG AC 14 500 40% +0
[2019-04-07] MEDS: BLOOD SUGAR DIAGNOSTIC 1 EACH STRIP IN SCH ×3 (08:06→17:10)
[2019-04-07] MEDS: LEVETIRACETAM SOL (5 ML) 100 MG/ML UDC NG SCH ×2 (08:06→21:43)
[2019-04-07] MEDS: PANTOPRAZOLE 40 MG VIAL IV SCH (08:06)
[2019-04-07] MEDS: INSULIN REGULAR, HUMAN 100 UNIT/ML 3 ML VIAL SQ PRN ×3 (08:16→17:16)
--- NOTE | 2019-04-07 09:15 | NUR ---
MEDICAL DOCTOR NOTE SEEN BY .UPDATED ABOUT PATENT CONDITION WITH LABS.MADE AWARE ABOUT L EXTREMITY STILL NOT MOVING.PRESENT REFLEXES IN L LOWER LEG.
--- NOTE | 2019-04-07 09:45 | NUR ---
TRANSACTION COORDINATOR NOTE. PATIENT OFF FROM DIPRIVAN.ABLE TO FOLLOW SIMPLE COMMAND.STILL CONFUSED.UNABLE TO MOVE L ARM.NO REFLEXES.ABLE TO MOVE L LEG.WILL CONTINUE TO MONITOR.
[2019-04-07] MEDS: ACETAMINOPHEN 650 MG/20.3 ML UDC NG PRN (10:23)
--- NOTE | 2019-04-07 13:25 | NUR ---
SHEET METAL WORK FURNACE INSTALLER NOTE PATIENT HAD TONIC CLONIC SEIZURE@1310.LASTED FRO 12 SECONDS.PATIENT GOT AGITATED.PLACED BACK TO DIPRIVAN.WILL CONTINUE TO MONITOR.
--- NOTE | 2019-04-07 19:22 | NUR ---
CONCIERGE RECEPTIONIST CLOSING NOTES PATIENT ORALLY INTUBATED ON ETT 7.5 AND 26CM @ LIP LINE. ON VENT TOLERATING SETTINGS ORDERED.SATURATING 100%. PATIENT IS SEDATED WITH DIPRIVAN . WITH NGT CLAMPED . IV ON JAYME PICC LINE WITH PROPOFOL @ 40 MCG/KG/MIN AND IVF NS @ 75 ML/HR. IV LINE ON LH, LFA ARE ALL INTACT AND PATENT. BLISS CATH DRAINED WITH YELLOW COLOR URINE. BED IS LOW AND IN LOCKED POSITION.BILATERAL SOFT RESTRAINTS ON .SAFETY,VISUAL CHECK DONE.ON CONTACT ISOLATION FOR DROPLET PRECAUTIONS.SRX3.BED ALARM ON .HOB ELEVATED.SPOKE TO MADE AWARE THAT PATIENT HAD SEIZURE.GOT NEW ORDER TO INCREASE KEPPRA TO [id number].AND TO CALL DOCTOR WHENEVER PATIENT HAS SEIZURE.ENDORSED TO PM NURSE FOR CHARLEEN.
--- NOTE | 2019-04-07 19:25 | NUR ---
RECEIVED PT ORALLY INTUBATED WITH 7.5 ETT SECURED VIA ANCHOR FAST AT 26CM AT THE LIP. NO RESP DISTRESS. PT TOLERATING VENT SETTINGS. PT IS SEDATED . SX DONE . PT RESPONDS TO STIMULI WHEN SUCTION. VENT ALARMS SET AND AUDIBLE. AMBU BAG AT BEDSIDE. WILL CONTINUE TO MONITOR T/O SHIFT
[2019-04-08] VITALS (37 sets, daily range): BP systolic 84–112; BP diastolic 42–71
[2019-04-08] MEDS: PIPERACILLIN /TAZOBACTAM 4.5 G in IV D5W 50 ML IV SCH ×5 (00:33→23:53)
[2019-04-08] MEDS: BLOOD SUGAR DIAGNOSTIC 1 EACH STRIP IN SCH ×5 (00:33→23:54)
[2019-04-08] MEDS: INSULIN REGULAR, HUMAN 100 UNIT/ML 3 ML VIAL SQ PRN ×5 (01:15→23:55)
[2019-04-08] MEDS: VANCOMYCIN 1 GM in IV D5W 250 ML IV SCH ×3 (01:22→16:06)
[2019-04-08] MEDS: PROPOFOL 100 ML IV PRN ×5 (02:35→20:37)
[2019-04-08 04:46] LABS: BASOPHILS % (AUTO) 0.2 % (0.0-2.0); EOSINOPHILS % (AUTO) 0.2 % (0.0-6.0); HEMATOCRIT 27 % (39-51); HEMOGLOBIN 9.3 g/dL (13.5-17.5); LYMPHOCYTES # (AUTO) 1.6 /CMM (0.8-4.8); LYMPHOCYTES % (AUTO) 17.9 % (20.0-44.0); MEAN CORPUSCULAR HGB CONC 34 g/dl (31.0-36.0); MEAN CORPUSCULAR VOLUME 89 fL (80-96); MONOCYTES # (AUTO) 0.7 /CMM (0.1-1.30); MONOCYTES % (AUTO) 8.4 % (2.0-12.0); NEUTROPHILS # (AUTO) 6.5 /CMM (1.8-8.9); NEUTROPHILS % (AUTO) 73.3 % (43.0-81.0); PLATELET COUNT (AUTO) 323 /CMM (150-450); RED BLOOD CELL COUNT(AUTO) 3.07 MIL/uL (4.5-6.0); WHITE BLOOD COUNT (AUTO) 8.9 K/uL (4.3-11.0)
[2019-04-08 05:18] LABS: BILIRUBIN,TOTAL 0.1 mg/dL (0.2-1.0); CALCIUM, SERUM 7.5 mg/dL (8.5-10.1); CREATININE 1.1 mg/dL (0.6-1.3); MAGNESIUM 1.7 mg/dL (1.8-2.4); PHOSPHORUS 2.7 mg/dL (2.5-4.9); POTASSIUM 3.1 mmol/L (3.5-5.1); TOTAL PROTEIN, SERUM 6.2 g/dL (6.4-8.2)
[2019-04-08] MEDS: LORAZEPAM INJ 2 MG/ML VIAL IV PRN (05:23)
[2019-04-08 05:40] LABS: ALBUMIN 1.3 g/dL (3.4-5.0)
[2019-04-08] MEDS: CEFTRIAXONE 2 G in IV D5W 100 ML IV SCH ×2 (05:41→17:29)
--- NOTE | 2019-04-08 07:15 | NUR ---
RN INITIAL NOTES RECEIVED PT INTUBATED, ON VENT. NO RESPIRATORY DISTRESS NOTED. NO SOB NOTED. PT SEDATED, ON DIPRIVAN AT 5OMCG/KG/MIN. LEFT NARE NGT IN PLACE, CLAMPED. JAYME PICC IN PLACE. IVF INFUSING. FC IN PLACE. NO HEMATURIA NOTED. BLE ELEVATED. REPOSITIONED. WILL MONITOR
[2019-04-08] MEDS: IV NS 0.9% 1,000 ML IV PRN ×2 (08:15→23:05)
[2019-04-08] MEDS: PANTOPRAZOLE 40 MG VIAL IV SCH (08:15)
[2019-04-08] MEDS: LEVETIRACETAM SOL (5 ML) 100 MG/ML UDC NG SCH ×2 (08:16→21:00)
[2019-04-08] MEDS: Magnesium 1GM/D5W 100ML PREMIX 100 ML IV SCH ×2 (11:04→12:09)
[2019-04-08] MEDS: POTASSIUM CL. PREMIX PERIPHER. 50 ML IV SCH ×4 (12:12→15:15)
--- NOTE | 2019-04-08 14:00 | NUR ---
RN NOTES 1200 SEEN AND EXAMINED BY DR STOKES. AWARE OF LAB VALUES AND CXR RESULT. MD ORDERED TO PULL OUT ETT BY 2.5CM. RT NOTIFIED. WILL MONITOR 1400 SEEN AND EXAMINED BY DR TAMMY SEN. PT REMAINS INTUBATED, ON VENT. NO RESPIRATORY DISTRESS NOTED. NO SOB NOTED. NO SIGNS OF ANY PAIN. PT SEDATED, ON DIPRIVAN AT 50MCG/KG/MIN. JAYME PICC IN PLACE. IVF INFUSING. AWARE OF LAB VALUES AND CXR RESULT. MAGNESIUM AND POTASSIUM REPLACED. FC IN PLACE. WILL MONITOR
--- NOTE | 2019-04-08 18:28 | NUR ---
RN CLOSING NOTES NO SIGNIFICANT CHANGE NOTED. PT REMAINS INTUBATED, ON VENT. PT SEDATED. DIPRIVAN TITRATED ACCORDINGLY. IVF INFUSING. KEPT CLEAN AND DRY. REPOSITIONING Q2. BLE ELEVATED. WILL ENDORSE FOR CONTINUITY OF CARE.
--- NOTE | 2019-04-08 20:00 | NUR ---
Received patient sedated on Diprivan gtt and orally intubated to vent on AC MODE as prescribed. Vent settings well tolerated.SR per monitor.SBP LOW 90's.NGT left nares intact.Placement verified and patent.All iv's infusing via JAYME PICC LINE ans site intact.FC to gravity drainage.Turned and Repositioned.No acute distress noted.Continue monitoring.
[2019-04-08] MEDS ORDERED: IV NS 0.9% 250 ML IV ONE (20:30)
[2019-04-09] VITALS (34 sets, daily range): BP systolic 66–157; BP diastolic 39–77
--- NOTE | 2019-04-09 | NUR ---
Patient sedated easily awakened during turning and repositioning Q 2hrs. Patient left arm with strong regional economic liaison and moving left legs kicking pillow.AM care done.Oral care done.Linens changed.Kept comfortable.
[2019-04-09] MEDS: PROPOFOL 100 ML IV PRN ×6 (00:53→20:19)
[2019-04-09] MEDS: VANCOMYCIN 1 GM in IV D5W 250 ML IV SCH ×2 (01:19→09:00)
[2019-04-09 05:33] LABS: BASOPHILS % (AUTO) 0.2 % (0.0-2.0); EOSINOPHILS % (AUTO) 1.9 % (0.0-6.0); HEMATOCRIT 29 % (39-51); HEMOGLOBIN 9.6 g/dL (13.5-17.5); LYMPHOCYTES # (AUTO) 0.9 /CMM (0.8-4.8); LYMPHOCYTES % (AUTO) 11.8 % (20.0-44.0); MEAN CORPUSCULAR HGB CONC 34 g/dl (31.0-36.0); MEAN CORPUSCULAR VOLUME 88 fL (80-96); MONOCYTES # (AUTO) 0.4 /CMM (0.1-1.30); MONOCYTES % (AUTO) 5.3 % (2.0-12.0); NEUTROPHILS # (AUTO) 6.3 /CMM (1.8-8.9); NEUTROPHILS % (AUTO) 80.8 % (43.0-81.0); PLATELET COUNT (AUTO) 303 /CMM (150-450); RED BLOOD CELL COUNT(AUTO) 3.23 MIL/uL (4.5-6.0); WHITE BLOOD COUNT (AUTO) 7.8 K/uL (4.3-11.0)
[2019-04-09] MEDS: CEFTRIAXONE 2 G in IV D5W 100 ML IV SCH ×2 (05:34→17:14)
[2019-04-09] MEDS: BLOOD SUGAR DIAGNOSTIC 1 EACH STRIP IN SCH ×3 (05:49→17:15)
[2019-04-09] MEDS: INSULIN REGULAR, HUMAN 100 UNIT/ML 3 ML VIAL SQ PRN ×3 (05:51→17:30)
[2019-04-09 06:07] LABS: CALCIUM, SERUM 7.4 mg/dL (8.5-10.1); CREATININE 0.7 mg/dL (0.6-1.3); MAGNESIUM 1.9 mg/dL (1.8-2.4); PHOSPHORUS 3.3 mg/dL (2.5-4.9); POTASSIUM 3.1 mmol/L (3.5-5.1)
[2019-04-09] MEDS: PIPERACILLIN /TAZOBACTAM 4.5 G in IV D5W 50 ML IV SCH ×3 (06:14→17:45)
--- NOTE | 2019-04-09 06:56 | NUR ---
Patient resting.VSS.SR.No acute distress noted.All ivs infusing well and due medications administered.No significant changed noted.Kept comfortable.Turned and repositioned. AM care done.Oral care done.Will endorse to day shift for CHARLEEN.
--- NOTE | 2019-04-09 07:15 | NUR ---
RN INITIAL NOTES RECEIVED PT INTUBATED, ON VENT. NO RESPIRATORY DISTRESS NOTED. NO SOB NOTED. PT SEDATED, ON DIPRIVAN AT 5OMCG/KG/MIN. LEFT NARE NGT IN PLACE, CLAMPED. JAYME PICC IN PLACE. IVF INFUSING. FC IN PLACE. NO HEMATURIA NOTED. NO SEIZURE NOTED. PT COMFORTABLE. BLE ELEVATED. REPOSITIONED. WILL MONITOR
[2019-04-09] MEDS: PANTOPRAZOLE 40 MG VIAL IV SCH (08:59)
[2019-04-09] MEDS: LEVETIRACETAM SOL (5 ML) 100 MG/ML UDC NG SCH ×2 (08:59→21:09)
[2019-04-09] MEDS: IV NS 0.9% 1,000 ML IV PRN (11:05)
[2019-04-09] MEDS: POTASSIUM CL. PREMIX PERIPHER. 50 ML IV SCH ×4 (11:21→14:31)
--- NOTE | 2019-04-09 12:00 | NUR ---
RN NOTES 899 SEEN AND EXAMINED BY DR HOWE. PT AWAKE AND AGITATED AT DIPRIVAN 30MCG/KG/MIN. TRYING TO PULL OUT ETT. ABLE TO FOLLOW SIMPLE COMMANDS. NO SEIZURE ACTIVITY NOTED. MEDS GIVEN ORDERED 929 SEEN AND EXAMINED BY DR PROCTOR. PT INTUBATED. NO RESPIRATORY DISTRESS NOTED. PT SEDATED. PER MD, NO WEANING TRIALS TODAY 1130 SEEN AND EXAMINED BY DR TAMMY SEN. AWARE OF CURRENT LAB VALUES AND CXR RESULT. AWARE OF DR. HOWE AND DR MUNOZ PLAN OF CARE. WILL MONITOR
--- NOTE | 2019-04-09 19:18 | NUR ---
RN OPENING NOTES RECEIVED PATIENT INTUBATED, ET IN PLACE, VENT SETTINGS ORDERED, NO SOB OR RESPIRATORY DISTRESS NOTED. SATURATING 100% AT THE MOMENT. ON BILATERAL SOFT RESTRAINS FOR PT SAFETY. PT SEDATED, ON DIPRIVAN AT 5OMCG/KG/MIN. LEFT NARE NGT IN PLACE, CLAMPED. JAYME PICC IN PLACE, IVF RUNNING ORDERED, NO INFILTRATION NOTED. BLISS CATH IN PLACE, DRAINING WELL, NO HEMATURIA NOTED. NO SEIZURE NOTED. BLE ELEVATED. WILL REPOSITION PER PROTOCOL. SAFETY MEASURES IN PLACE; CL WITHIN REACH, HOB ON SEMI FOWLERS POSITION, BED LOCKED AND IN LOW POSITION. WILL CONT TO MONITOR CLOSELY.
[2019-04-09] MEDS ORDERED: IV NS 0.9% 500 ML IV ONE (20:30)
[2019-04-09] MEDS ORDERED: MIDAZOLAM HCL 2 MG/2ML VIAL IV ONE (21:00)
--- NOTE | 2019-04-09 21:00 | NUR ---
RN NOTES AT 1999, PATIENT SBP 80'S. RECHECKED AGAIN 3X BP 84/46. CHARGE NURSE MADE AWARE AND ORDERED 500ML NS BOLUS. AT 2029, PT BP 99/57. ALSO, PT NOTED TO BE AWAKE, WITH MILD AGITATION NOTED AND TRYING TO REMOVE LINES. HOSPITALIST MADE AWARE AND ORDERED VERSED 2MG IV ONCE. WILL ATTEND TO ORDERS AND CONT TO MONITOR PT CLOSELY.
[2019-04-09] MEDS: LORAZEPAM INJ 2 MG/ML VIAL IV PRN (23:47)
[2019-04-10] VITALS (48 sets, daily range): BP systolic 81–125; BP diastolic 45–76
[2019-04-10] MEDS: PIPERACILLIN /TAZOBACTAM 4.5 G in IV D5W 50 ML IV SCH (00:03)
[2019-04-10] MEDS: IV NS 0.9% 1,000 ML IV PRN ×2 (00:04→21:58)
[2019-04-10] MEDS: PROPOFOL 100 ML IV PRN ×6 (00:06→23:54)
[2019-04-10] MEDS: BLOOD SUGAR DIAGNOSTIC 1 EACH STRIP IN SCH ×5 (00:31→23:54)
[2019-04-10] MEDS: INSULIN REGULAR, HUMAN 100 UNIT/ML 3 ML VIAL SQ PRN ×3 (00:40→23:56)
[2019-04-10] MEDS: CEFTRIAXONE 2 G in IV D5W 100 ML IV SCH ×2 (05:11→18:33)
[2019-04-10] MEDS: LORAZEPAM INJ 2 MG/ML VIAL IV PRN ×2 (05:26→07:02)
[2019-04-10 05:30] LABS: CALCIUM, SERUM 7.2 mg/dL (8.5-10.1); CREATININE 0.7 mg/dL (0.6-1.3); MAGNESIUM 1.9 mg/dL (1.8-2.4); PHOSPHORUS 2.8 mg/dL (2.5-4.9); POTASSIUM 2.9 mmol/L (3.5-5.1)
--- NOTE | 2019-04-10 07:23 | NUR ---
RN CLOSING NOTES PATIENT INTUBATED, ET IN PLACE, VENT SETTINGS ORDERED, NO SOB OR RESPIRATORY DISTRESS NOTED. SATURATING 100% AT THE MOMENT. ON BILATERAL SOFT RESTRAINS FOR PT SAFETY. PT SEDATED, ON DIPRIVAN AT 5OMCG/KG/MIN. LEFT NARE NGT IN PLACE, CLAMPED. JAYME PICC IN PLACE, IVF RUNNING ORDERED, NO INFILTRATION NOTED. BLISS CATH IN PLACE, DRAINING WELL. NO SEIZURE NOTED. BLE ELEVATED. REPOSITIONED Q2H. SAFETY MEASURES IN PLACE; CL WITHIN REACH, HOB ON SEMI FOWLERS POSITION, BED LOCKED AND IN LOW POSITION. WILL CONT TO MONITOR CLOSELY. ALL MD ORDERS ATTENDED, ALL NEEDS ANTICIPATED AND MET. ENDORSED TO AM RN FOR CHARLEEN.
--- NOTE | 2019-04-10 07:30 | NUR ---
RN NOTES RECEIVED PATIENT INTUBATED, ETT IN PLACE 7.5 CM AT 23.5 ON THE LIP, VENT SETTINGS ORDERED, PATIENT TOLERATING WELL. NO SOB OR RESPIRATORY DISTRESS NOTED. SATURATING 100%. NGT ON THE L NARE, IN PLACE AND CLAMPED AT THIS TIME. SINUS RHYTHM ON THE MONITOR WITH HR ON THE 70S. PATIENT SEDATED WITH DIPRIVAN AT 5OMCG/KG/MIN, WILL INITIATE SEDATION VACATION IN A WHILE. JAYME PICC IN PLACE,NO INFILTRATION NOTED, DRESSING DRY AND INTACT IVF RUNNING ORDERED. WITH BILATERAL SOFT RESTRAINTS IN PLACE, RELEASE AND REPLACED TO ASSESS. BLISS CATH IN PLACE, DRAINING WELL VIA GRAVITY TO CLEAR YELLOW URINE. HOB ELEVATED. SAFETY MEASURES IN PLACE, BED IN LOW AND LOCKED POSITION. CALL LIGHT WITHIN REACH,WILL CONTINUE TO MONITOR PATIENT CLOSELY
[2019-04-10] MEDS: PANTOPRAZOLE 40 MG VIAL IV SCH (07:53)
[2019-04-10] MEDS: LEVETIRACETAM SOL (5 ML) 100 MG/ML UDC NG SCH ×2 (08:31→20:14)
[2019-04-10] MEDS: VANCOMYCIN 1 GM in IV D5W 250 ML IV SCH ×2 (08:31→20:13)
[2019-04-10 09:53] LABS: EOSINOPHILS % (AUTO) 3.9 % (0.0-6.0); HEMATOCRIT 26 % (39-51); HEMOGLOBIN 8.7 g/dL (13.5-17.5); LYMPHOCYTES # (AUTO) 0.6 /CMM (0.8-4.8); LYMPHOCYTES % (AUTO) 6.4 % (20.0-44.0); MEAN CORPUSCULAR HGB CONC 34 g/dl (31.0-36.0); MEAN CORPUSCULAR VOLUME 88 fL (80-96); MONOCYTES # (AUTO) 0.6 /CMM (0.1-1.30); MONOCYTES % (AUTO) 7.3 % (2.0-12.0); NEUTROPHILS # (AUTO) 7.1 /CMM (1.8-8.9); NEUTROPHILS % (AUTO) 82.4 % (43.0-81.0); PLATELET COUNT (AUTO) 290 /CMM (150-450); WHITE BLOOD COUNT (AUTO) 8.6 K/uL (4.3-11.0)
[2019-04-10 12:08] LABS: *CRYPTOCOCCUS AG, CSF Negative (Negative)
[2019-04-10] MEDS: POTASSIUM CL. PREMIX PERIPHER. 50 ML IV SCH ×8 (12:28→19:42)
[2019-04-10] MEDS ORDERED: IV NS 0.9% 1,000 ML BAG IV ONE (13:30)
[2019-04-10] MEDS ORDERED: IV NS 0.9% 1,000 ML IV ONE (13:30)
--- NOTE | 2019-04-10 19:20 | NUR ---
RN NOTES ENDORSED FOR CONTINUITY OF CARE. NO SIGNIFICANT CHANGE NOTED. NOT ON ANY FORM OF DISTRESS. PATIENT STILL T SEDATED WITH DIPRIVAN. IVF INFUSING. KEPT COMFORTABLE. ALL NEEDS ANTICIPATED. SAFETY MEASURES IN PLACE AT ALL TIMES. CALL LIGHT WITHIN REACH
--- NOTE | 2019-04-10 19:21 | NUR ---
RT PT RECEIVED ON CURRENT SETTINGS. PT IS INTUBATED WITH 7.5 AT 23.5 AT LIP. VENT PLUGGED IN TO RED OUTLET. HOB AT 30 DEGREES. AMBU BAG AT HEAD OF BED. PT IN NO RESPIRATORY DISTRESS. WILL CONTINUE TO MONITOR.
--- NOTE | 2019-04-10 20:00 | NUR ---
BALANCE ASSEMBLER - NOTES - RECEIVED PATIENT INTUBATED, ETT IN PLACE 7.5 CM AT 23.5 AT THE LIP, VENT SETTINGS ORDERED, PATIENT TOLERATING WELL. NO SOB OR RESPIRATORY DISTRESS NOTED. SATURATING 100%. L NARE NGT IN PLACE AND CLAMPED AT THIS TIME. SINUS RHYTHM ON THE MONITOR WITH HR IN THE 60S. PATIENT SEDATED WITH DIPRIVAN AT 5OMCG/KG/MIN, WILL INITIATE SEDATION VACATION IN A WHILE. JAYME PICC IN PLACE, NO INFILTRATION NOTED, DRESSING DRY AND INTACT IVF RUNNING ORDERED. WITH BILATERAL SOFT RESTRAINTS IN PLACE, RELEASE AND REPLACED TO ASSESS. BLISS CATH IN PLACE, DRAINING WELL VIA GRAVITY TO CLEAR YELLOW URINE. HOB ELEVATED. SAFETY MEASURES IN PLACE, BED IN LOW AND LOCKED POSITION. CALL LIGHT WITHIN REACH,WILL CONTINUE TO MONITOR PATIENT CLOSELY
[2019-04-11] VITALS (43 sets, daily range): BP systolic 92–158; BP diastolic 52–97
[2019-04-11] MEDS: PROPOFOL 100 ML IV PRN ×3 (04:08→12:26)
[2019-04-11] MEDS: LORAZEPAM INJ 2 MG/ML VIAL IV PRN (04:32)
[2019-04-11 05:04] LABS: BASOPHILS % (AUTO) 0.7 % (0.0-2.0); EOSINOPHILS % (AUTO) 5.9 % (0.0-6.0); HEMATOCRIT 26 % (39-51); HEMOGLOBIN 8.8 g/dL (13.5-17.5); LYMPHOCYTES # (AUTO) 0.6 /CMM (0.8-4.8); MEAN CORPUSCULAR HGB CONC 33 g/dl (31.0-36.0); MEAN CORPUSCULAR VOLUME 89 fL (80-96); MONOCYTES # (AUTO) 0.6 /CMM (0.1-1.30); MONOCYTES % (AUTO) 9.3 % (2.0-12.0); NEUTROPHILS # (AUTO) 4.6 /CMM (1.8-8.9); NEUTROPHILS % (AUTO) 75.1 % (43.0-81.0); PLATELET COUNT (AUTO) 315 /CMM (150-450); RED BLOOD CELL COUNT(AUTO) 2.95 MIL/uL (4.5-6.0); WHITE BLOOD COUNT (AUTO) 6.2 K/uL (4.3-11.0)
[2019-04-11 05:13] LABS: CALCIUM, SERUM 7.4 mg/dL (8.5-10.1); CREATININE 0.6 mg/dL (0.6-1.3); MAGNESIUM 1.6 mg/dL (1.8-2.4); PHOSPHORUS 2.2 mg/dL (2.5-4.9); POTASSIUM 3.1 mmol/L (3.5-5.1)
[2019-04-11] MEDS: CEFTRIAXONE 2 G in IV D5W 100 ML IV SCH ×2 (05:18→17:08)
[2019-04-11] MEDS: BLOOD SUGAR DIAGNOSTIC 1 EACH STRIP IN SCH ×3 (05:19→18:16)
[2019-04-11] MEDS: PANTOPRAZOLE 40 MG VIAL IV SCH (07:16)
[2019-04-11 08:06] LABS: *C. PNEUMONIAE IgM < 1:10 (< 1:10); *C. PSITTACI IgM < 1:10 (< 1:10); *C.TRACHOMATIS IgM < 1:10 (< 1:10)
[2019-04-11] MEDS: LEVETIRACETAM SOL (5 ML) 100 MG/ML UDC NG SCH ×2 (08:28→21:07)
[2019-04-11] MEDS: VANCOMYCIN 1 GM in IV D5W 250 ML IV SCH ×2 (08:31→16:27)
[2019-04-11 09:06] LABS: *WEST NILE VIRUS IgG, CSF Negative (Negative)
[2019-04-11] MEDS: IV NS 0.9% 1,000 ML IV PRN ×2 (09:26→17:34)
--- NOTE | 2019-04-11 09:54 | NUR ---
RT NOTE PT ETT INSERTED 2.5 INCHES ORDERED. NOW AT 26CM AT LIP. NO DISTRESS NOTED. RN NOTIFIED. Addendum: 04/11/19 at 0955 by SUSAN MENDEZ RT Amended: Links added.
[2019-04-11] MEDS: POTASSIUM CL. PREMIX PERIPHER. 50 ML IV SCH ×3 (10:16→12:26)
[2019-04-11] MEDS: Magnesium 1GM/D5W 100ML PREMIX 100 ML IV SCH ×2 (10:16→11:19)
--- NOTE | 2019-04-11 10:30 | NUR ---
ICU/RN: S/B Dr Juan Carlos Dumont. Updated on pt status. Weaning trials this pm per Dr Davis.
[2019-04-11] MEDS ORDERED: NEUTRA PHOS 1 POWD.PACKET NG ONE (11:00)
[2019-04-11 11:07] LABS: *WEST NILE VIRUS IgM, CSF Negative (Negative)
[2019-04-11] MEDS ORDERED: Sodium Phosphate 15 MMOL in IV D5W 250 ML IV ONE (12:00)
[2019-04-11] MEDS: INSULIN REGULAR, HUMAN 100 UNIT/ML 3 ML VIAL SQ PRN ×2 (12:27→17:23)
[2019-04-11] MEDS ORDERED: DC PROPOFOL WHEN EXTUBATED XX PRN ×2 (13:00→15:30)
[2019-04-11 15:21] LABS: ABG BASE EXCESS 2.3 mmol/L; ABG OXYGEN SATURATION 96.6 % (92.0-98.5); ABG PCO2 36.6 mmHg (35.0-45.0); ABG PH 7.468 (7.350-7.450); ABG PO2 92.2 mmHg (75.0-100.0); AaDO2 150.9 mmHg; COHb 0.3 % (0.5-1.5); MetHb 0.4 % (0.0-1.5); O2Hb 95.9 % (94.0-97.0); PEEP,BG 5 cm H2O; SITE, ABG Right Radial; VENT MODE, BG SIMV 4 PS 15 +5
--- NOTE | 2019-04-11 15:40 | NUR ---
ICU/RN: Pt s/p extubation, A&Ox1, anxious, restless. States "I don't want to , please take me to the hospital." Pt reoriented several times. Pt attempting to pull lines and O2 canula. No distress noted. Will cont to monitor pt.
--- NOTE | 2019-04-11 15:40 | NUR ---
RT NOTE PT EXTUBATED PER MD STOKES ORDER. PT PLACED ON 3L NC. PT APPEARS AWAKE AND ALERT. RN NOTIFIED. NO DISTRESS NOTED. Addendum: 04/11/19 at 1541 by SUSAN MENDEZ RT Amended: Links added.
--- NOTE | 2019-04-11 16:15 | NUR ---
ICU/RN: Bed bath rendered. Pt confused and agitated, grabs staff and uncooperative.
--- NOTE | 2019-04-11 16:40 | NUR ---
ICU/RN: Pt's brotherMahendra at bedside. Pt recognizes brother, communicative. Updated on pt status.
--- NOTE | 2019-04-11 20:00 | NUR ---
INSECTICIDE MIXER -NOTES - Pt s/p extubation, A&Ox1, anxious, restless. Pt is on room air tolerating well. pt is in sr, bp wnl. pt has f/c good urine output. pt with wing picc line. No distress noted. Will cont to monitor pt.
[2019-04-12] VITALS (12 sets, daily range): BP systolic 120–139; BP diastolic 66–92
[2019-04-12] MEDS: BLOOD SUGAR DIAGNOSTIC 1 EACH STRIP IN SCH ×8 (00:36→23:43)
[2019-04-12] MEDS: VANCOMYCIN 1 GM in IV D5W 250 ML IV SCH ×3 (00:37→18:31)
[2019-04-12] MEDS: LORAZEPAM INJ 2 MG/ML VIAL IV PRN ×2 (00:41→04:28)
[2019-04-12] MEDS: INSULIN REGULAR, HUMAN 100 UNIT/ML 3 ML VIAL SQ PRN ×3 (01:02→23:45)
[2019-04-12] MEDS: IV NS 0.9% 1,000 ML IV PRN ×2 (02:49→22:40)
[2019-04-12 04:29] LABS: BASOPHILS # (AUTO) 0.1 /CMM (0.0-0.2); BASOPHILS % (AUTO) 1.4 % (0.0-2.0); EOSINOPHILS % (AUTO) 1.4 % (0.0-6.0); HEMATOCRIT 29 % (39-51); HEMOGLOBIN 9.8 g/dL (13.5-17.5); LYMPHOCYTES # (AUTO) 0.8 /CMM (0.8-4.8); LYMPHOCYTES % (AUTO) 9.1 % (20.0-44.0); MEAN CORPUSCULAR HGB CONC 34 g/dl (31.0-36.0); MEAN CORPUSCULAR VOLUME 87 fL (80-96); MONOCYTES # (AUTO) 0.7 /CMM (0.1-1.30); MONOCYTES % (AUTO) 7.9 % (2.0-12.0); NEUTROPHILS # (AUTO) 7.2 /CMM (1.8-8.9); NEUTROPHILS % (AUTO) 80.2 % (43.0-81.0); PLATELET COUNT (AUTO) 369 /CMM (150-450); RED BLOOD CELL COUNT(AUTO) 3.32 MIL/uL (4.5-6.0)
[2019-04-12 04:44] LABS: CALCIUM, SERUM 7.4 mg/dL (8.5-10.1); CREATININE 0.6 mg/dL (0.6-1.3); MAGNESIUM 1.7 mg/dL (1.8-2.4); PHOSPHORUS 2.1 mg/dL (2.5-4.9)
[2019-04-12 04:53] LABS: POTASSIUM 2.8 mmol/L (3.5-5.1)
[2019-04-12] MEDS: POTASSIUM CL. PREMIX PERIPHER. 50 ML IV SCH ×4 (05:50→10:15)
[2019-04-12] MEDS: CEFTRIAXONE 2 G in IV D5W 100 ML IV SCH ×2 (05:50→18:11)
--- NOTE | 2019-04-12 07:30 | NUR ---
RN NOTES RECEIVED PATIENT IN BED. AWAKE, ORIENTED X2, ABLE TO MAKE NEEDS KNOWN WITH EPISODES OF CONFUSION. ON ROOM AIR, BREATHING UNLABORED. SATING WELL. SINUS RHYTHM ON THE MONITOR WITH HR ON THE 80S. ENCOURAGE TO CALL FOR HELP AND ASSISTANCE. SAFETY MEASURES PUT IN PLACE AT ALL TIMES. BED IN LOW AND LOCKED POSITIONED. SRX2 RAISED. CALL LIGHT WITHIN REACH. BED ALARM ON. WILL CONTINUE TO MONITOR PATIENT CLOSELY
[2019-04-12] MEDS: PANTOPRAZOLE 40 MG VIAL IV SCH (08:08)
[2019-04-12] MEDS: LEVETIRACETAM SOL (5 ML) 100 MG/ML UDC NG SCH ×2 (08:11→21:17)
--- NOTE | 2019-04-12 09:30 | NUR ---
RN NOTES SEEN AND EXAMINED BY DR. GUERIN. WITH ORDERS MADE. ORDERS NOTED AND CARRIED OUT
[2019-04-12] MEDS ORDERED: Magnesium 1GM/D5W 100ML PREMIX 100 ML IV SCH ×2 (10:00)
[2019-04-12] MEDS: ACETAMINOPHEN 650 MG/20.3 ML UDC NG PRN ×4 (10:15→23:06)
--- NOTE | 2019-04-12 10:15 | NUR ---
RN NOTES PATIENT TRANSFERRED TO ROOM 325-1 VIA THE BED. NOT ON ANY FORM OF DISTRESS. REPORT GIVEN TO GRISELDA HINES AT BEDSIDE. HANDS OFF
[2019-04-12] MEDS ORDERED: INSULIN REGULAR, HUMAN 100 UNIT/ML 3 ML VIAL SQ PRN (10:30)
[2019-04-12] MEDS ORDERED: DEXTROSE 50%-WATER 50 ML DISP.SYRIN IV PRN ×2 (10:30→11:00)
[2019-04-12] MEDS ORDERED: POTASSIUM PHOSPHATE MM 15 MMOL in IV D5W 250 ML IV SCH (11:00)
--- NOTE | 2019-04-12 11:30 | NUR ---
MS RN RECEIVED PATIENT FROM ICU, SOMEWHAT CONFUSE,AWAKE,NO DISTRESS NOTED, LUNGS ARE CLEAR,ABDOMEN SOFT,POSITIVE BOWEL SOUNDS,DENIES PAIN AT THIS TIME,WILL MONITOR PATIENT'S CONDITION.
[2019-04-12] MEDS ORDERED: BLOOD SUGAR DIAGNOSTIC 1 EACH STRIP IN SCH (12:00)
--- NOTE | 2019-04-12 15:00 | NUR ---
MS RN ON BED, NO DISTESS NOTED,ALL NEEDS ATTENDED.
[2019-04-12] MEDS ORDERED: NEUTRA PHOS 1 POWD.PACKET PO ONE (15:30)
[2019-04-12] MEDS ORDERED: Sodium Phosphate 15 MMOL in IV D5W 250 ML IV ONE (16:00)
--- NOTE | 2019-04-12 18:00 | NUR ---
MS RN PATIENT INSIDE BATHROOM, REFUSED BLOOD SUGAR AT THIS TIME.
--- NOTE | 2019-04-12 18:45 | NUR ---
MS RN ON BED, NO DISTRESS NOTED,ALL NEEDS ATTENDED.
--- NOTE | 2019-04-12 19:15 | NUR ---
MS RN OPENING NOTES RECEIVED PATIENT IN BED, ALERT, ORIENTED X 2-3. BREATHING EVEN AND UNLABORED. NOT IN ANY DISTRESS. BLISS CATHETER IN PLACE, DRAINING CLEAR YELLOW URINE. NO COMPLAINTS AT THIS TIME. SAFETY MEASURES IN PLACE; CALL LIGHT WITHIN REACH, BED IN LOW, LOCKED POSITION. ENCOURAGED TO CALL FOR ASSISTANCE. WILL CONTINUE TO MONITOR ACCORDINGLY
[2019-04-12] MEDS: INSULIN GLARGINE, 100 UNIT/ML CARTRIDGE SQ SCH (21:22)
--- NOTE | 2019-04-12 23:45 | NUR ---
RN NOTES BSL CHECKED- 211MG/DL. 4 UNITS INSULIN GIVEN ORDERED.
[2019-04-13] MEDS: VANCOMYCIN 1 GM in IV D5W 250 ML IV SCH ×4 (00:34→23:48)
[2019-04-13 00:37] VITALS: BP 153/74
[2019-04-13] MEDS: CEFTRIAXONE 2 G in IV D5W 100 ML IV SCH ×2 (06:01→17:06)
[2019-04-13] MEDS: BLOOD SUGAR DIAGNOSTIC 1 EACH STRIP IN SCH ×5 (06:32→21:47)
[2019-04-13] MEDS: INSULIN REGULAR, HUMAN 100 UNIT/ML 3 ML VIAL SQ PRN ×4 (06:32→21:50)
--- NOTE | 2019-04-13 06:45 | NUR ---
MS RN CLOSING NOTES PATIENT RESTING IN BED, ALERT, ORIENTED X 3 WITH PERIODS OF CONFUSION. BREATHING EVEN AND UNLABORED. NOT IN ANY DISTRESS. PERIPHERAL IV INFUSING AT 75ML/HR. KEPT CLEAN, DRY AND COMFORTABLE. ALL NEEDS ATTENDED. NO ACUTE CHANGES OVERNIGHT. SAFETY MEASURES IN PLACE; CALL LIGHT WITHIN REACH, BED IN LOW, LOCKED POSITION. WILL ENDORSE CHARLEEN TO ONCOMING RN Addendum: 04/13/19 at 0646 by SHIREEN RODRIGUEZ RN ADDITIONAL NOTES BSL CHECKED- 84MG/DL. NO INSULIN GIVEN PER SLIDING SCALE
[2019-04-13 07:08] LABS: BASOPHILS % (AUTO) 0.4 % (0.0-2.0); EOSINOPHILS % (AUTO) 1.6 % (0.0-6.0); HEMATOCRIT 29 % (39-51); HEMOGLOBIN 9.9 g/dL (13.5-17.5); LYMPHOCYTES % (AUTO) 10.1 % (20.0-44.0); MEAN CORPUSCULAR HGB CONC 35 g/dl (31.0-36.0); MEAN CORPUSCULAR VOLUME 86 fL (80-96); MONOCYTES # (AUTO) 0.9 /CMM (0.1-1.30); MONOCYTES % (AUTO) 8.8 % (2.0-12.0); NEUTROPHILS # (AUTO) 8.1 /CMM (1.8-8.9); NEUTROPHILS % (AUTO) 79.1 % (43.0-81.0); PLATELET COUNT (AUTO) 402 /CMM (150-450); RED BLOOD CELL COUNT(AUTO) 3.32 MIL/uL (4.5-6.0); WHITE BLOOD COUNT (AUTO) 10.2 K/uL (4.3-11.0)
--- NOTE | 2019-04-13 07:08 | NUR ---
RN NOTES RECEIVED AN ORDER TO D/C BLISS CATHETER BY ARCADIO MENDEZ NP. ORDERS NOTED AND CARRIED OUT
[2019-04-13 07:23] LABS: CALCIUM, SERUM 7.4 mg/dL (8.5-10.1); CREATININE 0.7 mg/dL (0.6-1.3); MAGNESIUM 1.7 mg/dL (1.8-2.4); PHOSPHORUS 2.6 mg/dL (2.5-4.9)
--- NOTE | 2019-04-13 07:29 | NUR ---
RN OPENING NOTE PT WAS RECEIVED IN BED AT LOWEST AND LOCKED POSITION WITH SIDE RAILS UP X2, A/O 2-3 AND INFORMED BY NIGHT RN THAT PT HAS PERIOD OF CONFUSION, IV IS PATENT AND INTACT, RUTHY D/C THIS AM BY NIGHT RN, SAFETY PRECAUTIONS IN PLACE, CALL LIGHT IN REACH, WILL MONITOR ACCORDINGLY
[2019-04-13 07:34] LABS: POTASSIUM 2.7 mmol/L (3.5-5.1)
[2019-04-13 08:00] VITALS: BP 125/79
[2019-04-13] MEDS: PANTOPRAZOLE 40 MG VIAL IV SCH (08:20)
[2019-04-13] MEDS: LEVETIRACETAM SOL (5 ML) 100 MG/ML UDC NG SCH ×2 (08:23→20:14)
[2019-04-13] MEDS ORDERED: MAGNESIUM OXIDE 400 MG TABLET PO ONE (09:30)
[2019-04-13] MEDS ORDERED: POTASSIUM CHLORIDE 10 MEQ/50 ML PREMIXED IVPB FOR PERIPHERAL LINE IV ONE (09:30)
[2019-04-13] MEDS: POTASSIUM CL. PREMIX PERIPHER. 50 ML IV SCH ×6 (10:04→14:33)
[2019-04-13] MEDS: THIAMINE HCL 100 MG TABLET PO SCH (10:49)
[2019-04-13 11:11] LABS: *HSV 2 DNA PCR Negative (Negative)
--- NOTE | 2019-04-13 15:40 | NUR ---
RN NOTE IV POTASSIUM 6 BAGS FINISHED AT THIS TIME
[2019-04-13 16:00] VITALS: BP 137/88
[2019-04-13 17:06] LABS: *HIV-1 RNA BY PCR <20 copies/mL (.)
--- NOTE | 2019-04-13 18:19 | NUR ---
RN CLOSING NOTE PT IN BED AT LOWEST AND LOCKED POSITION WITH SIDE RAILS UP X2, A/O 2-3 WITH PERIODS OF CONFUSION, IV IS PATENT AND INTACT, PT AMBULATORY AND HAS BEEN ABLE TO VOID IN THE BATHROOM THROUGHOUT THE SHIFT, SAFETY PRECAUTIONS IN PLACE, CALL LIGHT IN REACH, ALL NEEDS ATTENDED TO, WILL ENDORSE TO NIGHT RN FOR CHARLEEN.
--- NOTE | 2019-04-13 19:05 | NUR ---
MS RN OPENING NOTES RECEIVED PATIENT AWAKE, ALERT, WITH FAMILY AT BEDSIDE. BREATHING EVEN AND UNLABORED. NOT IN ANY DISTRESS. ON ROOM AIR. JAYME PICC LINE INTACT AND PATENT WITH NS INFUSING AT 75ML/HR. NO COMPLAINTS AT THIS TIME. SAFETY MEASURES IN PLACE; CALL LIGHT WITHIN REACH, BED IN LOW, LOCKED POSITION. WILL CONTINUE TO MONITOR ACCORDINGLY
[2019-04-13 20:04] VITALS: BP 122/56
[2019-04-13] MEDS: ACETAMINOPHEN 650 MG/20.3 ML UDC NG PRN (20:15)
--- NOTE | 2019-04-13 20:15 | NUR ---
RN NOTES PATIENT C/O HEADACHE. TYLENOL 650MG PO GIVEN ORDERED. WILL CONTINUE TO MONITOR
[2019-04-13] MEDS: INSULIN GLARGINE, 100 UNIT/ML CARTRIDGE SQ SCH (21:49)
[2019-04-14] MEDS: IV NS 0.9% 1,000 ML IV PRN (01:05)
[2019-04-14] MEDS: ACETAMINOPHEN 650 MG/20.3 ML UDC NG PRN (01:55)
[2019-04-14] MEDS: CEFTRIAXONE 2 G in IV D5W 100 ML IV SCH (05:07)
[2019-04-14 06:28] LABS: CALCIUM, SERUM 7.4 mg/dL (8.5-10.1); CREATININE 0.8 mg/dL (0.6-1.3)
[2019-04-14] MEDS: INSULIN REGULAR, HUMAN 100 UNIT/ML 3 ML VIAL SQ PRN (06:35)
[2019-04-14] MEDS: BLOOD SUGAR DIAGNOSTIC 1 EACH STRIP IN SCH ×2 (06:35→17:40)
[2019-04-14 06:42] LABS: POTASSIUM 2.7 mmol/L (3.5-5.1)
--- NOTE | 2019-04-14 06:50 | NUR ---
MS RN CLOSING NOTES PATIENT IN BED, AWAKE, ALERT, FAMILY AT BEDSIDE. BREATHING EVEN AND UNLABORED. NOT IN ANY DISTRESS. PERIPHERAL IV INFUSING AT 75ML/HR. KEPT CLEAN, DRY AND COMFORTABLE. ALL NEEDS ATTENDED. NO ACUTE CHANGES OVERNIGHT. BSL CHECKED- 112MG/DL. NO INSULIN GIVEN PER SLIDING SCALE. RECEIVED A CALL FROM LAB REGARDING CRITICAL RESULT OF POTASSIUM OF 2.7. DR. GARZA MADE AWARE- A/W FOR ORDERS. SAFETY MEASURES IN PLACE; CALL LIGHT WITHIN REACH, BED IN LOW, LOCKED POSITION. WILL ENDORSE CHARLEEN TO ONCOMING RN
--- NOTE | 2019-04-14 07:00 | NUR ---
MS RN OPENING NOTES PATIENT A/0 X3 WITH PERIODS OF CONFUSION. PATIENT IS AWAKE, ALERT AND FAMILY AT BED SIDE. PATIENT BREATHING IS EVEN AND UNLABORED . NO SIGNS OF ANY DISTRESS . PATIENT HAS PERIPHERAL IV INFUSING AT 75 ML / HR. BED LOCKED AND LOWEST POSITION, CALL LIGHT WITH IN REACH. ALL SAFETY MEASURES IMPLEMENTED PER HOSPITAL PROTOCOL. SEIZURE PRECAUTION IMPLEMENTED
[2019-04-14 08:00] VITALS: BP 129/81
[2019-04-14] MEDS: VANCOMYCIN 1 GM in IV D5W 250 ML IV SCH ×2 (08:54→17:40)
[2019-04-14] MEDS: LEVETIRACETAM SOL (5 ML) 100 MG/ML UDC NG SCH (08:55)
[2019-04-14] MEDS: THIAMINE HCL 100 MG TABLET PO SCH (08:55)
[2019-04-14] MEDS: PANTOPRAZOLE 40 MG VIAL IV SCH (08:55)
[2019-04-14] MEDS ORDERED: POTASSIUM CHLORIDE 20 MEQ POWDER PACKET PO ONE (10:00)
[2019-04-14 16:00] VITALS: BP 127/76
--- NOTE | 2019-04-14 18:49 | NUR ---
MS RN CLOSING NOTES PATIENT A/0 X4 PATIENT IS SATURATING WELL, NO PAIN , SOB, NO SIGNS OF ACUTE DISTRESS. PATIENT IS RESTING COMFORTABLY IN BED. ALL SAFETY PRECAUTIONS IMPLEMENTED , TURN Q2 HOURS , BED LOCKED AND LOWEST POSITION. CALL LIGHT WITH IN REACH .
[2019-04-14 20:00] VITALS: BP 142/91
--- NOTE | 2019-04-14 22:08 | NUR ---
RN NOTES PATIENT LEFT WITH STABLE VITALS. TEAROOM HOSTESS SAW PATIENT PRIOR TO DISCHARGE. COUTURE DRESSMAKER, JOSELYN, SAW PATIENT TO SPEAK THAT PATIENT HAS CARE TO CONFIRM PATIENT WILL HAVE SOMEONE TO GIVE IV ABX. PATIENT SIGNED PAPERS. ALL BELONGINGS ARE WITH PATIENT. ALL PRESCRIPTIONS AND DOCUMENT WITH PATIENT.
== END 2019-04-14 20:45 | disposition home or self-care (01) | DRG 870 ==
LOC: ER 02:31 → TELE 05:59 → MED 09:33 → ICU 04-05 08:55 → MED 04-12 11:25
PROVIDERS: ADMIT Student in an Organized Health Care Education/Training Program; ATTEND Nurse Practitioner Acute Care
PROC: 009U3ZX Drainage of Spinal Canal, Percutaneous Approach, Diagnostic (ICD-10-PCS; 2019-04-04)
PROC: B01BZZZ Fluoroscopy of Spinal Cord (ICD-10-PCS; 2019-04-04)
PROC: 02HV33Z Insertion of Infusion Device into Superior Vena Cava, Percutaneous Approach (ICD-10-PCS; principal; 2019-04-05)
PROC: B548ZZA Ultrasonography of Superior Vena Cava, Guidance (ICD-10-PCS; principal; 2019-04-05)
PROC: 5A1955Z Respiratory Ventilation, Greater than 96 Consecutive Hours (ICD-10-PCS; principal; 2019-04-05)
PROC: 0BH17EZ Insertion of Endotracheal Airway into Trachea, Via Natural or Artificial Opening (ICD-10-PCS; principal; 2019-04-05)
DX: A41.9 Sepsis, unspecified organism (principal); G00.9 Bacterial meningitis, unspecified; J96.01 Acute respiratory failure with hypoxia; J15.9 Unspecified bacterial pneumonia; N17.0 Acute kidney failure with tubular necrosis; R65.21 Severe sepsis with septic shock; J15.6 Pneumonia due to other Gram-negative bacteria; J96.02 Acute respiratory failure with hypercapnia; G92 Toxic encephalopathy; E87.1 Hypo-osmolality and hyponatremia; E44.0 Moderate protein-calorie malnutrition; D64.9 Anemia, unspecified; D47.3 Essential (hemorrhagic) thrombocythemia; E87.6 Hypokalemia; E83.42 Hypomagnesemia; E11.65 Type 2 diabetes mellitus with hyperglycemia; E78.1 Pure hyperglyceridemia; E83.39 Other disorders of phosphorus metabolism; Z68.28 Body mass index [BMI] 28.0-28.9, adult; E88.09 Other disorders of plasma-protein metabolism, not elsewhere classified; R56.9 Unspecified convulsions; R53.1 Weakness; F19.10 Other psychoactive substance abuse, uncomplicated; E78.5 Hyperlipidemia, unspecified; D72.829 Elevated white blood cell count, unspecified; F12.90 Cannabis use, unspecified, uncomplicated; F17.210 Nicotine dependence, cigarettes, uncomplicated; G83.84 Todd's paralysis (postepileptic)
CPT/HCPCS: 31720; 36415; 36600; 62270; 70450-TC; 71045-TC; 80048-TC; 80053-TC; 80061-TC; 80074; 80076-TC; 80202-TC; 80305; 81000-TC; 82010-TC; 82272-TC; 82803-TC; 82962-TC; 83605-TC; 83735-TC; 84100-TC; 84443-TC; 84484-TC; 85025-TC; 85730-TC; 86592; 86632; 86788; 86789; 87040-TC; 87070-TC; 87081-TC; 87086-TC; 87102-TC; 87491; 87536; 87591; 87899; 89051-TC; 94002-TC; 94003-TC; 94760-TC; 94762-TC; 94799-TC; 97112-TC; 97116-TC; 97530-TC; A4216; A4217; A9563; C1751; C9113; G0378; G0480; J0133; J0290; J0696; J1100; J1815; J1953; J1956; J2060; J2250; J2405; J2543; J2704; J3370; J3475; J3480; J3490; J7030; J7040; J7050; J7060

== ENCOUNTER 2019-04-16 21:27 | Inpatient (IN) | payer MEDICAID ==
[~2019-04-16] VITALS: Ht 177.8 cm; Wt 88.0 kg
[2019-04-16] MEDS ORDERED: CEFTRIAXONE 1GM BAG (ER ONLY) 50 ML IV ONE (22:46)
[2019-04-16] MEDS ORDERED: VANCOMYCIN 1 GM VIAL ONE (22:46)
[2019-04-16] MEDS ORDERED: CEFTRIAXONE 1 G VIAL ONE (22:56)
[2019-04-16] MEDS ORDERED: VANCOMYCIN 1 GM in IV D5W 250 ML IV ONE (23:00)
[2019-04-16] MEDS ORDERED: CEFTRIAXONE 2 G in IV D5W 50 ML IV ONE (23:00)
--- NOTE | 2019-04-16 23:04 | NUR ---
BIBS. C/O "UNABLE TO F/U WITH HOME HEALTH ARRANGEMENTS" -SOB AOX4. VSS. RR EVEN & UNLABORED. DENIES CP, SOB, DIZZINESS, N/V, WEAKNESS @ THIS TIME. PT SEEN & EVAL'D BY DR. SHEFFIELD. WILL CONT TO MONITOR.
[2019-04-16 23:05] LABS: BASOPHILS # (AUTO) 0.1 /CMM (0.0-0.2); BASOPHILS % (AUTO) 0.5 % (0.0-2.0); EOSINOPHILS % (AUTO) 1.8 % (0.0-6.0); HEMATOCRIT 24 % (39-51); LYMPHOCYTES # (AUTO) 1.5 /CMM (0.8-4.8); LYMPHOCYTES % (AUTO) 14.1 % (20.0-44.0); MEAN CORPUSCULAR HGB CONC 34 g/dl (31.0-36.0); MEAN CORPUSCULAR VOLUME 89 fL (80-96); MONOCYTES # (AUTO) 0.6 /CMM (0.1-1.30); MONOCYTES % (AUTO) 5.1 % (2.0-12.0); NEUTROPHILS # (AUTO) 8.5 /CMM (1.8-8.9); NEUTROPHILS % (AUTO) 78.5 % (43.0-81.0); PLATELET COUNT (AUTO) 374 /CMM (150-450); RED BLOOD CELL COUNT(AUTO) 2.67 MIL/uL (4.5-6.0); WHITE BLOOD COUNT (AUTO) 10.8 K/uL (4.3-11.0)
[2019-04-16 23:07] LABS: CALCIUM, SERUM 7.4 mg/dL (8.5-10.1); CARBON DIOXIDE 29 mmol/L (21-32); CHLORIDE 103 mmol/L (98-107); CREATININE 0.9 mg/dL (0.6-1.3); GLUCOSE 132 mg/dL (74-106); POTASSIUM 3.2 mmol/L (3.5-5.1); SODIUM SERUM 140 mmol/L (136-145); UREA NITROGEN, BLOOD 10 mg/dL (7-18)
[2019-04-16 23:08] LABS: ABG BASE EXCESS 0.9 mmol/L; ABG OXYGEN SATURATION 97.3 % (92.0-98.5); ABG PCO2 26.8 mmHg (35.0-45.0); ABG PH 7.549 (7.350-7.450); ABG PO2 104.8 mmHg (75.0-100.0); AaDO2 12.8 mmHg; MetHb 0.5 % (0.0-1.5); O2Hb 96.8 % (94.0-97.0); SITE, ABG Right Radial; VENT MODE, BG RA
--- NOTE | 2019-04-17 00:26 | NUR ---
Report given to Oly VILLALOBOS for continuation of care.
[2019-04-17] MEDS ORDERED: *INSULIN REGULAR(HUMULIN R)HUM 100 UNIT/ML VIAL SQ PRN (00:30)
[2019-04-17] MEDS ORDERED: Z GUARD REMEDY 2 OZ OINT TP PRN (00:30)
[2019-04-17] MEDS ORDERED: HYDROCODONE/APAP 5/325MG 1 EACH TABLET PO PRN (00:30)
[2019-04-17] MEDS ORDERED: MAGNESIUM HYDROXIDE 30 ML UDC PO PRN (00:30)
[2019-04-17] MEDS ORDERED: DEXTROSE 50%-WATER 50 ML DISP.SYRIN IV PRN (00:30)
[2019-04-17] MEDS ORDERED: ONDANSETRON HCL/PF 4 MG/2 ML VIAL IVP PRN (00:30)
[2019-04-17] MEDS ORDERED: ACETAMINOPHEN 325 MG TABLET PO PRN (00:30)
[2019-04-17] MEDS ORDERED: MAG HYDROX/AL HYDROX/SIMETH 30 ML UDC PO PRN (00:30)
[2019-04-17 00:49] VITALS: BP 134/74
--- NOTE | 2019-04-17 01:00 | NUR ---
Receive pt from E.R services via wheelchair pt a/o x4, respirations even and unlabored. pt no c/o of pain at this time. head to toe assessment is done. per pt wanted to talk the case management in regards of his insurance. He thought it was already settled before he left the hospital. He has not received antibiotics since leaving. Has no acute complaints. PICC line JAYME intact no s/s of infection. will continue to monitor pt
--- NOTE | 2019-04-17 02:30 | NUR ---
Change dressing of pt's PICC line JAYME. tolerated procedure well.
--- NOTE | 2019-04-17 03:30 | NUR ---
Pt's girlfriend came at bedside. Pt eating snacks at this time.
--- NOTE | 2019-04-17 04:00 | NUR ---
Pt asleep no s/s of distress
--- NOTE | 2019-04-17 06:08 | NUR ---
Pt asleep and easily awaken, respirations even and unlabored. no c/o pain this time. needs attended and anticipated, kept clean, dy and comfortable. JAYME picc intact. AM care rendered. safety measures at all times. will endorse next shift POC.
[2019-04-17] MEDS ORDERED: FEE PK DOSING 1 MIN EA MC ONE (06:39)
[2019-04-17] MEDS: BLOOD SUGAR DIAGNOSTIC 1 EACH STRIP VI SCH ×4 (06:57→21:40)
[2019-04-17] MEDS: INSULIN REGULAR, HUMAN 100 UNIT/ML 3 ML VIAL SQ PRN ×2 (07:06→17:15)
--- NOTE | 2019-04-17 07:30 | NUR ---
RN OPENING NOTES RECEIVED PATIENT IN BED RESTING. A/OX4, ABLE TO MAKE NEEDS KNOWN. NOT IN ANY FORM OF DISTRESS. NO SOB. DENIED ANY PAIN OR DISCOMFORT AT THIS TIME. IV ACCESS,RIGHT UPPER ARM PICC, INTACT AND PATENT. KEPT PATIENT SAFE AND COMFORTABLE. BED IN LOW LOCKED POSITION. SIDERAILS UPX2, CALL LIGHT IN REACH. WILL CONTINUE TO MONITOR ACCORDINGLY
[2019-04-17 07:51] VITALS: BP 131/78
[2019-04-17] MEDS ORDERED: CEFT2VIA14 IV (08:08)
[2019-04-17] MEDS ORDERED: LEVE500T9 PO (08:08)
[2019-04-17] MEDS ORDERED: INSU100V7 SQ (08:08)
[2019-04-17] MEDS ORDERED: VANC1PIG IV (08:08)
[2019-04-17] MEDS: VANCOMYCIN 1 GM in IV D5W 250 ML IV SCH ×2 (08:16→16:25)
[2019-04-17] MEDS ORDERED: THIA100T68 PO (08:19)
[2019-04-17] MEDS: CEFTRIAXONE 2 G in IV D5W 100 ML IV SCH ×2 (10:03→21:40)
[2019-04-17 16:00] VITALS: BP 138/81
--- NOTE | 2019-04-17 19:41 | NUR ---
RN CLOSING NOTES PATIENT IN STABLE CONDITION. NO SIGNIFICANT CHANGE OF CONDITION DURING THE SHIFT. ALL NEEDS ATTENDED AND PROVIDED. ALL DUE MEDS GIVEN ORDERED. KEPT PATIENT SAFE AND COMFORTABLE. BED IN LOW/LOCKED POSITION, SIDERIALS UPX2, CALL LIGHT IN REACH. ENDORSED TO NIGHT RN FOR CHARLEEN.
[2019-04-17 21:14] VITALS: BP 126/74
[2019-04-18] MEDS: VANCOMYCIN 1 GM in IV D5W 250 ML IV SCH ×3 (00:17→16:01)
--- NOTE | 2019-04-18 06:00 | NUR ---
MS RN NOTES BS CHECKED 135. PT REFUSED TO HAVE INSULIN AT THIS TIME. EXPLAINED TO PT IMPORTANCE OF INSULIN IN HIS POC. PT STILL REFUSED. PT STATES "I JUST HAD COCONUT WATER." WILL CONTINUE TO MONITOR.
--- NOTE | 2019-04-18 06:45 | NUR ---
MS RN NOTES AWAKE & RESPONSIVE. NOT IN ANY DISTRESS. NO SOB NOTED. DENIES ANY PAIN OR DISCOMFORT AT THIS TIME. WITH PICC LINE PATENT & INTACT. MONITORED ACCORDINGLY. CALL LIGHT WITHIN REACH. BED IN LOWEST POSITION. SR UP X 2 FOR SAFETY. WILL ENDORSE TO NEXT SHIFT.
--- NOTE | 2019-04-18 07:10 | NUR ---
MS RN NOTES PATIENT IN BED ALERT ORIENTED X 3. NO ACUTE DISTRESS NOTED. BREATHING UNLABORED. IV ACCESS PATIENT AND INTACT. NO REDNESS OR SWELLING NOTED. SAFETY MEASURES IN PLACE. CALL LIGHT WITHIN REACH. WILL CONTINUE TO MONITOR ACCORDINGLY.
[2019-04-18] MEDS: BLOOD SUGAR DIAGNOSTIC 1 EACH STRIP VI SCH ×3 (07:13→17:30)
[2019-04-18 07:18] LABS: BASOPHILS # (AUTO) 0.1 /CMM (0.0-0.2); BASOPHILS % (AUTO) 0.9 % (0.0-2.0); EOSINOPHILS % (AUTO) 5.9 % (0.0-6.0); HEMATOCRIT 25 % (39-51); HEMOGLOBIN 8.8 g/dL (13.5-17.5); LYMPHOCYTES # (AUTO) 1.1 /CMM (0.8-4.8); LYMPHOCYTES % (AUTO) 12.2 % (20.0-44.0); MEAN CORPUSCULAR HGB CONC 35 g/dl (31.0-36.0); MEAN CORPUSCULAR VOLUME 87 fL (80-96); MONOCYTES # (AUTO) 0.5 /CMM (0.1-1.30); MONOCYTES % (AUTO) 5.5 % (2.0-12.0); NEUTROPHILS # (AUTO) 6.8 /CMM (1.8-8.9); NEUTROPHILS % (AUTO) 75.5 % (43.0-81.0); PLATELET COUNT (AUTO) 363 /CMM (150-450); RED BLOOD CELL COUNT(AUTO) 2.91 MIL/uL (4.5-6.0)
[2019-04-18 07:35] LABS: CALCIUM, SERUM 7.5 mg/dL (8.5-10.1); MAGNESIUM 1.7 mg/dL (1.8-2.4); PHOSPHORUS 3.6 mg/dL (2.5-4.9); POTASSIUM 3.4 mmol/L (3.5-5.1)
[2019-04-18 08:00] VITALS: BP 133/75
[2019-04-18] MEDS: CEFTRIAXONE 2 G in IV D5W 100 ML IV SCH (09:26)
[2019-04-18] MEDS ORDERED: ALBUTEROL HALF STRENGTH 1.25 MG/3 ML VIAL.NEB NEB PRN (10:00)
[2019-04-18] MEDS ORDERED: IPRATROPIUM NEB FS 0.5 MG/2.5 ML AMPUL.NEB NEB PRN (10:00)
[2019-04-18] MEDS ORDERED: POTASSIUM CHLORIDE 20 MEQ TAB.PRT.SR PO SCH (10:30)
[2019-04-18] MEDS: Magnesium 1GM/D5W 100ML PREMIX 100 ML IV SCH ×2 (10:33→11:41)
--- NOTE | 2019-04-18 12:06 | NUR ---
MS RN NOTES CHEST XRAY RESULTED, NOTIFIED DR STOKES, NO NEW ORDER MADE AT THIS TIME.
--- NOTE | 2019-04-18 13:37 | NUR ---
MS RN NOTES PATIENT SEEN AND EVALUATED BY DR JULIANN AGUDELO WITH NEW ORDER MADE, NOTED AND CARRIED OUT.
--- NOTE | 2019-04-18 18:10 | NUR ---
MS PIG LEAD MELTER HELPER NOTES PATIENT DISCHARGE HOME WITH STABLE VITAL SIGNS. ALERT ORIENTED X 3. NO ACUTE DISTRESS NOTED. BREATHING UNLABORED. DISCHARGE INSTRUCTIONS GIVEN TO THE PATIENT INCLUDING IV ANTIBIOTIC FOLLOW UP WITH [facility] AND FOLLOW UP WITH PRIMARY DOCTOR. PATIENT VERBALIZED UNDERSTANDING AND STATED "I WILL FOLLOW UP AND GO TO [facility] FOR FOLLOW UP". CLARIFIED WITH DR JULIANN AGUDELO REGARDING PICC LINE SAID DO NOT REMOVE PICC LINE PATIENT TO GET IV ANTIBIOTIC POST DISCHARGE. RIGHT UPPER ARM PICC LINE PATENT AND INTACT SECURED WITH TRANSPARENT DRESSING, NO REDNESS, NO BLEEDING NOTED, NO SWELLING NOTED. ALL BELONGINGS ACCOUNTED FOR. ASSISTED TO THE LOBBY, PICKED UP VIA PRIVATE CAR ACCOMPANIED BY GIRLFRIEND IN STABLE CONDITION.
== END 2019-04-18 18:10 | disposition home or self-care (01) | DRG 871 ==
LOC: ER 21:31 → MEDSG2 04-17 00:32
PROVIDERS: ADMIT Nurse Practitioner Acute Care; ATTEND Nurse Practitioner Acute Care
DX: A41.9 Sepsis, unspecified organism (principal); G00.1 Pneumococcal meningitis; J69.0 Pneumonitis due to inhalation of food and vomit; G93.40 Encephalopathy, unspecified; E11.9 Type 2 diabetes mellitus without complications; F32.9 Major depressive disorder, single episode, unspecified; I10 Essential (primary) hypertension; G40.909 Epilepsy, unspecified, not intractable, without status epilepticus; F17.210 Nicotine dependence, cigarettes, uncomplicated; F10.20 Alcohol dependence, uncomplicated; D64.9 Anemia, unspecified
CPT/HCPCS: 36415; 36600; 71045-TC; 80048-TC; 80202-TC; 82010-TC; 82803-TC; 82962-TC; 83735-TC; 84100-TC; 85025-TC; 87081-TC; G0378; J0696; J1815; J3370; J3475; J7050; J7060